=== PATIENT | male | born 1935 | race Caucasian/White ===

== ENCOUNTER → 2017-03-03 | Outpatient (CLI) | payer MEDICARE ==
[2015-07-09 11:24] VITALS: BP 162/77
[~2017-03-03] MED LIST: ACET325T9 PO; ALBU2.5V5 NEB; ALPR0.25 PO; ALPR0.254 PO; ASPI-482 PO; Albuterol Sulfate NEB; CLOP75TA PO; CLOP75TA57 PO; DILT240C2 PO; GUAI5LIQ PO; GUAI600T47 PO; LEVO750T31 PO; LISI40TA PO; NAPR500T3 PO; PRAV80TA2 PO; PRED-220 PO
--- NOTE | 2017-03-03 13:30 | RAD ---
Indication shortness of breath. PA and lateral views of the chest were obtained. Comparison is made to the most recent examination 07/19/2015. Chronic pleural-parenchymal changes are noted. The heart and pulmonary vessels are within normal limits. An acute parenchymal infiltrate is not seen. Significant pleural fluid is not present and there is no pneumothorax. IMPRESSION: Chronic changes. No acute finding is seen
== END | disposition home or self-care (01) ==
LOC: RAD 12:07
PROVIDERS: ATTEND Family Medicine
DX: R06.02 Shortness of breath (principal)
CPT/HCPCS: 71020

== ENCOUNTER → 2017-11-03 | Outpatient (CLI) | payer MEDICARE | END | disposition home or self-care (01) | LOC: RAD 08:15 | DX: M19.011 Primary osteoarthritis, right shoulder (principal); M19.012 Primary osteoarthritis, left shoulder; M11.012 Hydroxyapatite deposition disease, left shoulder; M11.011 Hydroxyapatite deposition disease, right shoulder; J84.10 Pulmonary fibrosis, unspecified | CPT/HCPCS: 73030 ==

== ENCOUNTER 2018-06-14 14:26 | Emergency (ER) | payer MEDICARE ==
[~2018-06-14] VITALS: Ht 170.2 cm; Wt 64.9 kg
[~2018-06-14 14:26] MED LIST changes: +LISI-130 PO; -LISI40TA PO; +NAPR-514 PO; -NAPR500T3 PO
--- NOTE | 2018-06-14 14:30 | PHYS DOC ---
Past Medical History Past Medical History: COPD, Hypertension Additional Past Medical Histor: emphysema, irregular heart beat Past Surgical History: Other Additional Past Surgical Histo: R groin stent placement, stents in heart, stents in legs bilaterally Alcohol Use: None Drug Use: None Adult General Chief Complaint Chief Complaint: SHORTNESS OF BREATH HPI HPI Patient is a 82 year old male with cc of cough shortness of breath generalized fatigue for the past two weeks. slowly worsening no chest pain no fever. he had flu shot a few days ago but he was feeling bad even before that. Review of Systems Review of Systems Constitutional: Eyes: Denies change in visual acuity, redness, or eye pain [] HENT: Denies nasal congestion or sore throat [] Respiratory: Cardiovascular: No additional information not addressed in HPI [] GI: constipation Musculoskeletal: D Integument: Denies rash or skin lesions [] Neurologic: Denies headache, focal weakness or sensory changes [] All other systems were reviewed and found to be within normal limits, except as documented in this note. Current Medications Current Medications Current Medications Medications (Trade) Dose Ordered Sig/Moraima Start Time Stop Time Status Last Admin Dose Admin Albuterol/ Ipratropium (Duoneb) 3 ml 1X ONCE 06/14/18 14:45 06/14/18 14:46 DC 06/14/18 14:49 3 ML Doxycycline Hyclate (Vibra-Tab) 100 mg 1X ONCE 06/14/18 16:00 06/14/18 16:01 DC Allergies Allergies Allergies Coded Allergies Type Severity Reaction Last Updated Verified No Known Drug Allergies 07/04/15 No Physical Exam Physical Exam Constitutional: Well developed, well nourished, no acute distress, non-toxic appearance. [] HENT: Normocephalic, atraumatic, bilateral external ears normal, oropharynx moist, no oral exudates, nose normal. [] Eyes: PERRLA, EOMI, conjunctiva normal, no discharge. [] Neck: Normal range of motion, no tenderness, supple, no stridor. [] Cardiovascular:Heart rate regular rhythm, no murmur [] Lungs & Thorax: prolonged expiratory phase and faint wheezing noted. Abdomen: Bowel sounds normal, soft, no tenderness, no masses, no pulsatile masses. [] Skin: Warm, dry, no erythema, no rash. [] Back: No tenderness, no CVA tenderness. [] Extremities: No tenderness, no cyanosis, no clubbing, ROM intact,trace edema. Neurologic: Alert and oriented X 3, normal motor function, normal sensory function, no focal deficits noted. [] Psychologic: Affect normal, judgement normal, mood normal. [] Current Patient Data Vital Signs Vital Signs Date Time Temp Pulse Resp B/P (MAP) Pulse Ox O2 Delivery O2 Flow Rate FiO2 06/14/18 14:51 96 06/14/18 14:32 98.5 77 26 169/74 (105) Nasal Cannula 98.5 Lab Values Laboratory Tests Test 06/14/18 14:36 06/14/18 15:10 White Blood Count 8.6 x10^3/uL (4.0-11.0) Red Blood Count 3.02 x10^6/uL (4.30-5.70) L Hemoglobin 9.9 g/dL (13.0-17.5) L Hematocrit 29.2 % (39.0-53.0) L Mean Corpuscular Volume 97 fL (79-100) Mean Corpuscular Hemoglobin 33 pg (25-35) Mean Corpuscular Hemoglobin Concent 34 g/dL (31-37) Red Cell Distribution Width 17.1 % (11.5-14.5) H Platelet Count 242 x10^3/uL (140-400) Neutrophils (%) (Auto) 72 % (31-73) Lymphocytes (%) (Auto) 14 % (24-48) L Monocytes (%) (Auto) 11 % (0-9) H Eosinophils (%) (Auto) 2 % (0-3) Basophils (%) (Auto) 1 % (0-3) Neutrophils # (Auto) 6.2 x10^3uL (1.8-7.7) Lymphocytes # (Auto) 1.2 x10^3/uL (1.0-4.8) Monocytes # (Auto) 1.0 x10^3/uL (0.0-1.1) Eosinophils # (Auto) 0.2 x10^3/uL (0.0-0.7) Basophils # (Auto) 0.1 x10^3/uL (0.0-0.2) Prothrombin Time 12.5 SEC (11.7-14.0) Prothrombin Time INR 1.0 (0.8-1.1) Sodium Level 140 mmol/L (136-145) Potassium Level 3.9 mmol/L (3.5-5.1) Chloride Level 100 mmol/L (98-107) Carbon Dioxide Level 34 mmol/L (21-32) H Anion Gap 6 (6-14) Blood Urea Nitrogen 18 mg/dL (8-26) Creatinine 1.1 mg/dL (0.7-1.3) Estimated GFR (Cockcroft-Gault) 64.1 BUN/Creatinine Ratio 16 (6-20) Glucose Level 125 mg/dL (70-99) H Calcium Level 9.1 mg/dL (8.5-10.1) Total Bilirubin 0.2 mg/dL (0.2-1.0) Aspartate Amino Transferase (AST) 19 U/L (15-37) Alanine Aminotransferase (ALT) 33 U/L (16-63) Alkaline Phosphatase 83 U/L (46-116) Troponin I Quantitative < 0.017 ng/mL (0.000-0.055) CD-Zjm-G-Type Natriuretic Peptide 556 pg/mL (0-449) H Total Protein 7.4 g/dL (6.4-8.2) Albumin 3.0 g/dL (3.4-5.0) L Albumin/Globulin Ratio 0.7 (1.0-1.7) L Influenza Type A Antigen Negative (NEGATIVE) Influenza Type B Antigen Negative (NEGATIVE) Laboratory Tests 06/14/18 14:36 Laboratory Tests 06/14/18 14:36 EKG EKG [] Interpretation Time: nsr rate 72 no ischemic changes no stemi normal intervals. Radiology/Procedures Radiology/Procedures [] Impressions: PRESSION: 1. Mild prominent appearing bilateral interstitial lung markings could be chronic interstitial changes or interstitial infiltrates. 2. 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 Electronically signed by: Jorge Cordero MD (06/14/2018 3:17 PM) [id number] DICTATED and SIGNED BY: JORGE CORDERO MD DATE: 06/14/18 1513 Course & Med Decision Making Course & Med Decision Making Pertinent Labs and Imaging studies reviewed. (See chart for details) [] hx of coronary artery disease with previous stent placement, hypertension, COPD, chronic respiratory failure. osteoarthritis, hyperlipidemia, and anemia. p/w generalized malaise,small incrsae in cough cxr suggestive of atypical pneumonia. pt saturating well at 95 on 4l (norammly on 6l at home) after walking back to room in er from bathroom. doxycycline rx lactulose for report of constiaption Dragon Disclaimer Dragon Disclaimer This electronic medical record was generated, in whole or in part, using a voice recognition dictation system. Departure Departure Impression: Primary Impression: Atypical pneumonia Disposition: HOME, SELF-CARE Condition: STABLE Referrals: ANKIT PARDO MD (PCP) Scripts Lactulose (LACTULOSE) 20 Gm/30 Ml Solution 20 GM PO BID PRN for CONSTIPATION, #1 MISC Prov: PHIL ESPINOZA MD 06/14/18 Doxycycline Hyclate (DOXYCYCLINE HYCLATE) 100 Mg Tablet 1 TAB PO BID, #20 TAB Prov: PHIL ESPINOZA MD 06/14/18 PHIL ESPINOZA MD Jun 14, 2018 14:30
[2018-06-14] MEDS ORDERED: IPRATRPIUM/ALBUTEROL 0.5/2.5MG 3 ML NEBU. NEB ONE (14:45)
[2018-06-14 14:59] LABS: BASO # 0.1 x10^3/uL (0.0-0.2); BASO % 1 % (0-3); EOS # 0.2 x10^3/uL (0.0-0.7); EOS % 2 % (0-3); HEMATOCRIT 29.2 % (39.0-53.0); HEMOGLOBIN 9.9 g/dL (13.0-17.5); LYMPH # 1.2 x10^3/uL (1.0-4.8); LYMPH % 14 % (24-48); MEAN CORPUSCULAR HEMOGLOBIN 33 pg (25-35); MEAN CORPUSCULAR HGB CONC 34 g/dL (31-37); MEAN CORPUSCULAR VOLUME 97 fL (79-100); MONO % 11 % (0-9); NEUT # 6.2 x10^3uL (1.8-7.7); NEUT % 72 % (31-73); PLATELET COUNT 242 x10^3/uL (140-400); PROTHROMBIN TIME PATIENT 12.5 SEC (11.7-14.0); RED BLOOD COUNT 3.02 x10^6/uL (4.30-5.70); RED CELL DISTRIBUTION WIDTH 17.1 % (11.5-14.5); WHITE BLOOD COUNT 8.6 x10^3/uL (4.0-11.0)
[2018-06-14 15:03] LABS: CALCIUM 9.1 mg/dL (8.5-10.1); CREATININE 1.1 mg/dL (0.7-1.3); GFR 64.1; POTASSIUM 3.9 mmol/L (3.5-5.1)
[2018-06-14 15:08] LABS: ALBUMIN/GLOBULIN RATIO 0.7 (1.0-1.7); TOTAL BILIRUBIN 0.2 mg/dL (0.2-1.0); TOTAL PROTEIN 7.4 g/dL (6.4-8.2)
--- NOTE | 2018-06-14 15:12 | EKG ---
[facility] [address] [place] [address] Test Date: 2018-06-14 Test Time: 14:52:05 Pat Name: CHELSIE PETTY Department: Room: Gender: M Seal Mixer: : 1935 Requested By: PHIL ESPINOZA Order Number: [id number] Reading MD: Wyatt Riley MD Measurements Intervals [place] Rate: 72 P: SD: QRS: 53 QRSD: 90 T: 65 QT: 384 QTc: 422 Interpretive Statements SINUS RHYTHM PAC Electronically Signed On 06-16-2018 9:51:53 CDT by Wyatt Riley MD
--- NOTE | 2018-06-14 15:20 | RAD ---
Examination: Single frontal view the chest HISTORY: History of shortness of breath COMPARISON: 03/03/2017. FINDINGS: The cardiomediastinal silhouette grossly appears unremarkable.Calcific densities identified in the bilateral hemithoraces likely calcified pleural plaques. There is mild prominent appearing bilateral interstitial lung markings could be chronic interstitial changes or interstitial infiltrates. IMPRESSION: 1. Mild prominent appearing bilateral interstitial lung markings could be chronic interstitial changes or interstitial infiltrates. 2. 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 Electronically signed by: Jorge Cordero MD (06/14/2018 3:17 PM) [id number]
[2018-06-14] MEDS ORDERED: DOXY100T PO (15:55)
[2018-06-14] MEDS ORDERED: LACT20SO PO (15:55)
[2018-06-14] MEDS ORDERED: DOXYCYCLINE HYCLATE 100 MG TABLET PO ONE (16:00)
[2018-06-14 16:05] LABS: INFLUENZA A PATIENT NEGATIVE (NEGATIVE); INFLUENZA B PATIENT NEGATIVE (NEGATIVE)
[2018-06-14 16:50] VITALS: BP 135/63
== END 2018-06-14 16:50 | disposition home or self-care (01) ==
LOC: ER 14:26
DX: J18.9 Pneumonia, unspecified organism (principal); J44.9 Chronic obstructive pulmonary disease, unspecified; I10 Essential (primary) hypertension
CPT/HCPCS: 36415; 71045; 80053; 83880; 84484; 85025; 85610; 87804; 93005; 94640; 99285; J7620

== ENCOUNTER 2018-08-12 12:25 | Emergency (ER) | payer MEDICARE ==
[~2018-08-12] VITALS: Ht 172.7 cm; Wt 67.1 kg
[~2018-08-12 12:25] MED LIST changes: +DOXY100T PO; +LACT20SO PO
[2018-08-12] MEDS ORDERED: IPRATRPIUM/ALBUTEROL 0.5/2.5MG 3 ML NEBU. NEB ONE (12:45)
[2018-08-12 12:56] LABS: BASO # 0.1 x10^3/uL (0.0-0.2); BASO % 1 % (0-3); EOS # 0.1 x10^3/uL (0.0-0.7); EOS % 1 % (0-3); HEMATOCRIT 29.5 % (39.0-53.0); HEMOGLOBIN 9.9 g/dL (13.0-17.5); LYMPH # 0.8 x10^3/uL (1.0-4.8); LYMPH % 9 % (24-48); MEAN CORPUSCULAR HEMOGLOBIN 33 pg (25-35); MEAN CORPUSCULAR HGB CONC 34 g/dL (31-37); MEAN CORPUSCULAR VOLUME 97 fL (79-100); MONO # 0.8 x10^3/uL (0.0-1.1); MONO % 9 % (0-9); NEUT # 7.2 x10^3uL (1.8-7.7); NEUT % 80 % (31-73); PLATELET COUNT 294 x10^3/uL (140-400); RED BLOOD COUNT 3.03 x10^6/uL (4.30-5.70); RED CELL DISTRIBUTION WIDTH 18.5 % (11.5-14.5)
--- NOTE | 2018-08-12 13:01 | EKG ---
[facility] [address] [place] [address] Test Date: 2018-08-12 Test Time: 12:33:33 Pat Name: CHELSIE PETTY Department: Room: Gender: M Brass Pickler: : 1935 Requested By: TITUS STROUD Order Number: [id number] Reading MD: Chilango Busby Measurements Intervals [place] Rate: 77 P: ID: QRS: 22 QRSD: 94 T: 64 QT: 376 QTc: 432 Interpretive Statements SINUS RHYTHM Electronically Signed On 08-16-2018 10:30:45 CELL RELINER by Chilango Busby
[2018-08-12 13:06] LABS: CALCIUM 8.8 mg/dL (8.5-10.1); CREATININE 1.1 mg/dL (0.7-1.3); GFR 64.1; POTASSIUM 3.9 mmol/L (3.5-5.1)
--- NOTE | 2018-08-12 13:08 | RAD ---
Chest radiograph 08/12/2018 12:33 PM INDICATION: Shortness of air COMPARISON: June 14, 2018 TECHNIQUE: Portable upright frontal view of the chest is provided. FINDINGS: The cardiomediastinal silhouette is within normal limits. There are no pleural effusions. There is no pulmonary vascular congestion. There is no pneumothorax. The lungs are clear. Stable calcified granuloma in the right upper lobe measuring 10 mm. Calcific pleural plaques are suspected. Mild chronic interstitial changes are noted. Left suprahilar atelectasis or scarring. There may be a left suprahilar nodular opacity measuring 17 mm. No significant osseous abnormality is identified. IMPRESSION: No acute cardiopulmonary process. Left suprahilar nodularity appears stable from prior examination. Chronic interstitial changes are present. Electronically signed by: Cyn Gibbs MD (08/12/2018 1:03 PM) [id number]
[2018-08-12 13:12] LABS: ALBUMIN 3.5 g/dL (3.4-5.0); DIRECT BILIRUBIN 0.1 mg/dL (0.0-0.2); TOTAL BILIRUBIN 0.2 mg/dL (0.2-1.0); TOTAL PROTEIN 7.4 g/dL (6.4-8.2)
[2018-08-12 15:11] LABS: FECAL OB PT NEGATIVE (NEG)
--- NOTE | 2018-08-12 15:12 | PHYS DOC ---
Past Medical History Past Medical History: A-Fib, Bronchitis, COPD, Hypertension, Other Additional Past Medical Histor: EMPHYSEMA,ASBESTOS OF LUNG, HOME O2 Past Surgical History: Other Additional Past Surgical Histo: R groin stent placement, stents in heart, stents in legs bilaterally Alcohol Use: None Drug Use: None Adult General Chief Complaint Chief Complaint: SHORTNESS OF BREATH HPI HPI 82-year-old male presenting the emergency department today with shortness of breath that is chronic. [facility] also [facility]. He has paperwork with him today. 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 He denies any changes in his shortness of breath. He denies chest pain abdominal pain nausea vomiting. He reports taking iron every day which makes his stools dark but denies any recent changes. He has a hx of a GI bleed. ROS neg for cp/n/v/f/c. All other review of systems is negative unless otherwise noted in history of present illness. ED course: 82-year-old male presenting to the emergency department for low hemoglobin with chronic shortness of breath. On arrival patient is afebrile with normal heart rate. Saturating well on his 6 L nasal cannula which she takes at home. Blood pressure is elevated. On exam his lungs are clear bilaterally. The remainder the exam is unremarkable. Workup breathing within normal limits. Patient's hemoglobin on August 05 is recorded to be at 10.1. The patient takes a baby aspirin without any anticoagulants. Rectal exam shows no blood in the stool. Fecal occult blood sent. This is negative. Plan is to discharge the patient to follow-up with in 1 to 2 days. The patient has been examined and was not found to have an emergency medical condition. The patient was then discharged home in stable condition to follow up with their primary care physician over the next 1-2 days. They were to return if their symptoms worsened or if they were concerned for any reason. They were also instructed to return to the emergency department if they were unable to get the recommended and appropriate follow-up. [id number] discharge instructions and return precautions were given. Patient's questions were answered to their satisfaction. Patient is comfortable with plan. Review of Systems Review of Systems SEE ABOVE. Current Medications Current Medications Current Medications Medications (Trade) Dose Ordered Sig/Moraima Start Time Stop Time Status Last Admin Dose Admin Albuterol/ Ipratropium (Duoneb) 3 ml 1X ONCE 08/12/18 12:45 08/12/18 12:52 DC 08/12/18 12:52 3 ML Allergies Allergies Allergies Coded Allergies Type Severity Reaction Last Updated Verified No Known Drug Allergies 07/04/15 No Physical Exam Physical Exam SEE ABOVE Constitutional: Well developed, well nourished, no acute distress, non-toxic appearance. HENT: Normocephalic, atraumatic, bilateral external ears normal, oropharynx moist, no oral exudates, nose normal. [] Eyes: PERRLA, EOMI, conjunctiva normal, no discharge. Neck: Normal range of motion, no tenderness, supple, no stridor. [] Cardiovascular:Heart rate regular rhythm, no murmur Lungs & Thorax: Bilateral breath sounds clear to auscultation Abdomen: Bowel sounds normal, soft, no tenderness, no masses, no pulsatile masses. [] Skin: Warm, dry, no erythema, no rash. Back: No tenderness, no CVA tenderness. [] Extremities: No tenderness, no cyanosis, no clubbing, ROM intact, no edema. Neurologic: Alert and oriented X 3, normal motor function, normal sensory function, no focal deficits noted. Psychologic: Affect normal, judgement normal, mood normal. Current Patient Data Vital Signs Vital Signs Date Time Temp Pulse Resp B/P (MAP) Pulse Ox O2 Delivery O2 Flow Rate FiO2 08/12/18 15:30 58 22 146/67 (93) 98 Nasal Cannula 6.0 08/12/18 12:27 98.6 98.6 Lab Values Laboratory Tests Test 08/12/18 12:33 08/12/18 12:40 08/12/18 14:34 08/12/18 14:37 Troponin I Quantitative < 0.017 ng/mL (0.000-0.055) White Blood Count 9.0 x10^3/uL (4.0-11.0) Red Blood Count 3.03 x10^6/uL (4.30-5.70) L Hemoglobin 9.9 g/dL (13.0-17.5) L Hematocrit 29.5 % (39.0-53.0) L Mean Corpuscular Volume 97 fL (79-100) Mean Corpuscular Hemoglobin 33 pg (25-35) Mean Corpuscular Hemoglobin Concent 34 g/dL (31-37) Red Cell Distribution Width 18.5 % (11.5-14.5) H Platelet Count 294 x10^3/uL (140-400) Neutrophils (%) (Auto) 80 % (31-73) H Lymphocytes (%) (Auto) 9 % (24-48) L Monocytes (%) (Auto) 9 % (0-9) Eosinophils (%) (Auto) 1 % (0-3) Basophils (%) (Auto) 1 % (0-3) Neutrophils # (Auto) 7.2 x10^3uL (1.8-7.7) Lymphocytes # (Auto) 0.8 x10^3/uL (1.0-4.8) L Monocytes # (Auto) 0.8 x10^3/uL (0.0-1.1) Eosinophils # (Auto) 0.1 x10^3/uL (0.0-0.7) Basophils # (Auto) 0.1 x10^3/uL (0.0-0.2) Sodium Level 144 mmol/L (136-145) Potassium Level 3.9 mmol/L (3.5-5.1) Chloride Level 104 mmol/L (98-107) Carbon Dioxide Level 32 mmol/L (21-32) Anion Gap 8 (6-14) Blood Urea Nitrogen 18 mg/dL (8-26) Creatinine 1.1 mg/dL (0.7-1.3) Estimated GFR (Cockcroft-Gault) 64.1 Glucose Level 116 mg/dL (70-99) H Calcium Level 8.8 mg/dL (8.5-10.1) Total Bilirubin 0.2 mg/dL (0.2-1.0) Direct Bilirubin 0.1 mg/dL (0.0-0.2) Aspartate Amino Transferase (AST) 21 U/L (15-37) Alanine Aminotransferase (ALT) 34 U/L (16-63) Alkaline Phosphatase 84 U/L (46-116) FW-Ecm-Z-Type Natriuretic Peptide 717 pg/mL (0-449) H Total Protein 7.4 g/dL (6.4-8.2) Albumin 3.5 g/dL (3.4-5.0) Lipase 97 U/L (73-393) Stool Occult Blood Negative (NEG) Urine Collection Type Unknown Urine Color Yellow Urine Clarity Clear Urine pH 6.0 Urine Specific [place] 1.025 Urine Protein Negative mg/dL (NEG-TRACE) Urine Glucose (UA) Negative mg/dL (NEG) Urine Ketones (Stick) Negative mg/dL (NEG) Urine Blood Negative (NEG) Urine Nitrite Negative (NEG) Urine Bilirubin Small (NEG) Urine Urobilinogen Dipstick 1.0 mg/dL (0.2 mg/dL) Urine Leukocyte Esterase Small (NEG) Urine RBC 1-2 /HPF (0-2) Urine WBC >40 /HPF (0-4) Urine Squamous Epithelial Cells Few /LPF Urine Bacteria 0 /HPF (0-FEW) Urine Hyaline Casts Moderate /HPF Urine Mucus Marked /LPF Laboratory Tests 08/12/18 12:40 Laboratory Tests 08/12/18 12:40 EKG EKG [] Radiology/Procedures Radiology/Procedures [] Course & Med Decision Making Course & Med Decision Making Pertinent Labs and Imaging studies reviewed. (See chart for details) [] Dragon Disclaimer Dragon Disclaimer This electronic medical record was generated, in whole or in part, using a voice recognition dictation system. Departure Departure Impression: Primary Impression: Anemia Disposition: 01 HOME, SELF-CARE Condition: STABLE Referrals: ANKIT PARDO MD (PCP) Patient Instructions: Anemia, FAQs TITUS STROUD MD Aug 12, 2018 15:12
[2018-08-12 15:15] LABS: BILIRUBIN,URINE SMALL (NEG); CLARITY,URINE CLEAR; COLOR,URINE YELLOW; NITRITE,URINE NEGATIVE (NEG); PROTEIN,URINE NEGATIVE (NEG-TRACE)
[2018-08-12 15:26] LABS: BACTERIA,URINE 0 /HPF (0-FEW); HYALINE CASTS, URINE MODERATE /HPF; SQUAMOUS EPITHELIAL CELL,UR FEW /LPF; WBC,URINE >40 /HPF (0-4)
[2018-08-12 15:30] VITALS: BP 146/67
== END 2018-08-12 16:15 | disposition home or self-care (01) ==
LOC: ER 12:25
DX: D64.9 Anemia, unspecified (principal); J43.9 Emphysema, unspecified; I48.91 Unspecified atrial fibrillation; I10 Essential (primary) hypertension; Z95.5 Presence of coronary angioplasty implant and graft
CPT/HCPCS: 36415; 71045; 80048; 80076; 81001; 82274; 83690; 83880; 84484; 85025; 87086; 93005; 94640; 99284; J7620

== ENCOUNTER 2019-07-04 16:10 | Inpatient (IN) | payer MEDICARE ==
[2019-07-04] VITALS (9 sets, daily range): BP systolic 108–139; BP diastolic 52–64
[~2019-07-04] VITALS: Ht 170.2 cm; Wt 65.8 kg
[2019-07-04] MEDS ORDERED: IV NORMAL SALINE 1000ML BAG 1,000 ML IV ONE (16:30)
[2019-07-04] MEDS ORDERED: ACETAMINOPHEN 500 MG TABLET PO ONE (16:30)
[2019-07-04] MEDS ORDERED: IPRATRPIUM/ALBUTEROL 0.5/2.5MG 3 ML NEBU. NEB ONE (16:30)
[2019-07-04] MEDS ORDERED: AZITHRMYCN 500MG IVPB FOR OMNI 250 ML IV ONE (16:30)
[2019-07-04] MEDS ORDERED: methylPREDNISolone SOD SUCC PF 125 MG/2 ML VIAL. IV ONE (16:30)
--- NOTE | 2019-07-04 16:36 | PHYS DOC ---
Past Medical History Past Medical History: A-Fib, Bronchitis, COPD, Hypertension, Other Additional Past Medical Histor: EMPHYSEMA,ASBESTOS OF LUNG, HOME O2 Past Surgical History: Other Additional Past Surgical Histo: R groin stent placement, stents in heart, stents in legs bilaterally Alcohol Use: None Drug Use: None Adult General Chief Complaint Chief Complaint: SHORTNESS OF BREATH [facility] HPI Patient is an 83-year-old male who presents to the emergency department for evaluation, from his PCPs office. The patient states that he has a history of COPD, and is currently on 6 L of oxygen chronically at home. He states he has been having increasing shortness of breath over the past few weeks, along with cough productive of grayish sputum. He denies any pain, nausea, or vomiting. He went to his PCPs office today and was found to have maximal oxygen saturation in the 80s so was sent to the emergency department for further evaluation and treatment. He denies any orthopnea, pleuritic pain, dizziness or lightheadedness. He is noted to be febrile upon arrival to the emergency department. There are no alleviating or exacerbating factors to his symptoms otherwise. Review of Systems Review of Systems Constitutional: Denies fever or chills [] Eyes: Denies change in visual acuity, redness, or eye pain [] HENT: Denies nasal congestion or sore throat [] Respiratory: No additional information not addressed in HPI [] Cardiovascular:The patient denies any chest pain, palpitations, or orthopnea[] GI: Denies abdominal pain, nausea, vomiting, bloody stools or diarrhea [] : Denies dysuria or hematuria [] Musculoskeletal: Denies back pain or joint pain [] Integument: Denies rash or skin lesions [] Neurologic: Denies headache, focal weakness or sensory changes [] Endocrine: Denies polyuria or polydipsia [] All other systems were reviewed and found to be within normal limits, except as documented in this note. Current Medications Current Medications Current Medications Medications (Trade) Dose Ordered Sig/Moraima Start Time Stop Time Status Last Admin Dose Admin Acetaminophen (Tylenol) 1,000 mg 1X ONCE 07/04/19 16:30 07/04/19 16:33 DC 07/04/19 17:05 1,000 MG Albuterol/ Ipratropium (Duoneb) 3 ml 1X ONCE 07/04/19 16:30 07/04/19 16:31 DC 07/04/19 17:04 3 ML Azithromycin 250 ml @ 250 mls/hr 1X ONCE 07/04/19 16:30 07/04/19 17:29 DC 07/04/19 17:05 250 MLS/HR Methylprednisolone Sodium Succinate (SOLU-Medrol 125MG VIAL) 125 mg 1X ONCE 07/04/19 16:30 07/04/19 16:31 DC 07/04/19 17:05 125 MG Sodium Chloride 1,000 ml @ 1,000 mls/hr 1X ONCE 07/04/19 16:30 07/04/19 17:29 DC 07/04/19 17:06 1,000 MLS/HR Allergies Allergies Allergies Coded Allergies Type Severity Reaction Last Updated Verified No Known Drug Allergies 07/04/15 No Physical Exam Physical Exam PHYSICAL EXAM: CONSTITUTIONAL: Well developed, well nourished HEAD: normocephalic, atraumatic EENT: PERRL, EOMI. Conjunctivae normal color, sclerae non-icteric; moist mucous membranes. NECK: Supple, non-tender; no meningismus. LUNGS: There are diminished breath sounds globally, with some faint scattered expiratory wheezes diffusely. There are more focal rhonchi in the left mid and lower lung yu, breathing is unlabored . HEART: Regular rate and rhythm, no murmur CHEST: No deformity; non-tender ABDOMEN: The abdomen is soft, and non-tender, no masses or bruits. EXTREM: Normal ROM; no deformity, no calf tenderness. Normal pulses palpable in all extremities. There is no pedal edema. SKIN: No rash; no diaphoresis NEURO: Alert; normal speech and cognition; CN's grossly intact; strength grossly intact without focal deficit. BACK: No CVA TTP. Current Patient Data Vital Signs Vital Signs Date Time Temp Pulse Resp B/P (MAP) Pulse Ox O2 Delivery O2 Flow Rate FiO2 07/04/19 17:06 96 Nasal Cannula 4.0 07/04/19 16:13 101.3 89 22 155/69 (97) 101.3 Lab Values Laboratory Tests Test 07/04/19 16:45 White Blood Count 20.2 x10^3/uL (4.0-11.0) H Red Blood Count 2.82 x10^6/uL (4.30-5.70) L Hemoglobin 8.9 g/dL (13.0-17.5) L Hematocrit 27.0 % (39.0-53.0) L Mean Corpuscular Volume 96 fL (79-100) Mean Corpuscular Hemoglobin 32 pg (25-35) Mean Corpuscular Hemoglobin Concent 33 g/dL (31-37) Red Cell Distribution Width 20.6 % (11.5-14.5) H Platelet Count 210 x10^3/uL (140-400) Neutrophils (%) (Auto) 87 % (31-73) H Lymphocytes (%) (Auto) 4 % (24-48) L Monocytes (%) (Auto) 8 % (0-9) Eosinophils (%) (Auto) 0 % (0-3) Basophils (%) (Auto) 1 % (0-3) Neutrophils # (Auto) 17.6 x10^3/uL (1.8-7.7) H Lymphocytes # (Auto) 0.9 x10^3/uL (1.0-4.8) L Monocytes # (Auto) 1.6 x10^3/uL (0.0-1.1) H Eosinophils # (Auto) 0.0 x10^3/uL (0.0-0.7) Basophils # (Auto) 0.2 x10^3/uL (0.0-0.2) Segmented Neutrophils % 69 % (35-66) H Band Neutrophils % 20 % (0-9) H Lymphocytes % 5 % (24-48) L Monocytes % 6 % (0-10) Toxic Granulation Slight Dohle Bodies Present Platelet Estimate Adequate (ADEQUATE) Poikilocytosis Slight Anisocytosis Mod Ovalocytes Occ Stomatocytes Schistocytes Occ Sodium Level 139 mmol/L (136-145) Potassium Level 3.7 mmol/L (3.5-5.1) Chloride Level 101 mmol/L (98-107) Carbon Dioxide Level 29 mmol/L (21-32) Anion Gap 9 (6-14) Blood Urea Nitrogen 25 mg/dL (8-26) Creatinine 1.3 mg/dL (0.7-1.3) Estimated GFR (Cockcroft-Gault) 52.7 BUN/Creatinine Ratio 19 (6-20) Glucose Level 123 mg/dL (70-99) H Lactic Acid Level 1.4 mmol/L (0.4-2.0) Calcium Level 8.3 mg/dL (8.5-10.1) L Total Bilirubin 1.0 mg/dL (0.2-1.0) Aspartate Amino Transferase (AST) 14 U/L (15-37) L Alanine Aminotransferase (ALT) 12 U/L (16-63) L Alkaline Phosphatase 78 U/L (46-116) Troponin I Quantitative < 0.017 ng/mL (0.000-0.055) ZR-Czp-J-Type Natriuretic Peptide 746 pg/mL (0-449) H Total Protein 7.3 g/dL (6.4-8.2) Albumin 3.1 g/dL (3.4-5.0) L Albumin/Globulin Ratio 0.7 (1.0-1.7) L Influenza Type A Antigen Negative (NEGATIVE) Influenza Type B Antigen Negative (NEGATIVE) Laboratory Tests 07/04/19 16:45 Laboratory Tests 07/04/19 16:45 EKG EKG [] Normal sinus rhythm at a rate of 88 bpm with occasional APCs, normal axis, normal intervals, nonspecific ST/T changes inferiorly/laterally, unchanged compared to patient's EKG from 07/2018. Radiology/Procedures Radiology/Procedures PROCEDURE: CHEST PA & LATERAL Two-view chest dated 07/04/2019. Comparison made to 08/12/2018. Clinical data indication: Shortness of breath. FINDINGS: PA and lateral views obtained. Heart and mediastinal contours are stable. There is a rounded consolidation in the right lower lobe, new from prior study. There are also some patchy and linear opacities at the perihilar regions, similar slightly increased. No pleural effusion or pneumothorax. IMPRESSION: Increasing bilateral airspace disease, atelectasis or pneumonia. Underlying mass cannot be excluded. Recommend follow-up imaging after treatment to ensure resolution. Course & Med Decision Making Course & Med Decision Making Pertinent Labs and Imaging studies reviewed. (See chart for details) [] 5:05 PM:The patient's condition remains stable. I spoke with the hospitalist, who accepted the patient to the hospital for further evaluation and treatment. 5:55 PM: The patient developed rapid atrial fibrillation with a heart rate in the 130s. Blood pressure remained stable. Cardizem will be started. Hospitalist will be updated. CRITICAL CARE TIME: 45 Minutes, excluding any procedures and care of other patients. Dragon Disclaimer Dragon Disclaimer This electronic medical record was generated, in whole or in part, using a voice recognition dictation system. Departure Departure Impression: Primary Impression: Pneumonia Additional Impressions: COPD with acute exacerbation Rapid atrial fibrillation Disposition: 09 ADMITTED INPATIENT Admitting Physician: DIANE Condition: STABLE Referrals: ANKIT PARDO MD (PCP) Problem Qualifiers NEMO DOWNING MD Jul 04, 2019 16:36
--- NOTE | 2019-07-04 16:51 | EKG ---
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
[2019-07-04 16:53] LABS: BASO # 0.2 x10^3/uL (0.0-0.2); BASO % 1 % (0-3); EOS % 0 % (0-3); HEMOGLOBIN 8.9 g/dL (13.0-17.5); LYMPH # 0.9 x10^3/uL (1.0-4.8); LYMPH % 4 % (24-48); MEAN CORPUSCULAR HEMOGLOBIN 32 pg (25-35); MEAN CORPUSCULAR HGB CONC 33 g/dL (31-37); MEAN CORPUSCULAR VOLUME 96 fL (79-100); MONO # 1.6 x10^3/uL (0.0-1.1); MONO % 8 % (0-9); NEUT # 17.6 x10^3/uL (1.8-7.7); NEUT % 87 % (31-73); PLATELET COUNT 210 x10^3/uL (140-400); RED BLOOD COUNT 2.82 x10^6/uL (4.30-5.70); RED CELL DISTRIBUTION WIDTH 20.6 % (11.5-14.5); WHITE BLOOD COUNT 20.2 x10^3/uL (4.0-11.0)
[2019-07-04 17:02] LABS: CALCIUM 8.3 mg/dL (8.5-10.1); CREATININE 1.3 mg/dL (0.7-1.3); GFR 52.7; POTASSIUM 3.7 mmol/L (3.5-5.1)
[2019-07-04 17:08] LABS: ALBUMIN 3.1 g/dL (3.4-5.0); ALBUMIN/GLOBULIN RATIO 0.7 (1.0-1.7); TOTAL PROTEIN 7.3 g/dL (6.4-8.2)
[2019-07-04 17:11] LABS: INFLUENZA A PATIENT NEGATIVE (NEGATIVE); INFLUENZA B PATIENT NEGATIVE (NEGATIVE)
--- NOTE | 2019-07-04 17:13 | RAD ---
Two-view chest dated 07/04/2019. Comparison made to 08/12/2018. Clinical data indication: Shortness of breath. FINDINGS: PA and lateral views obtained. Heart and mediastinal contours are stable. There is a rounded consolidation in the right lower lobe, new from prior study. There are also some patchy and linear opacities at the perihilar regions, similar slightly increased. No pleural effusion or pneumothorax. IMPRESSION: Increasing bilateral airspace disease, atelectasis or pneumonia. Underlying mass cannot be excluded. Recommend follow-up imaging after treatment to ensure resolution. Electronically signed by: Wang Douglas MD (07/04/2019 5:10 PM) [facility]
[2019-07-04] MEDS ORDERED: HYDROcodone/APAP 5/325MG 1 TAB TABLET PO PRN (17:15)
[2019-07-04] MEDS ORDERED: TEMAZEPAM 7.5 MG CAPSULE PO PRN (17:15)
[2019-07-04] MEDS ORDERED: LACTULOSE 20 GM/30 ML SOLUTION. PO PRN (17:15)
[2019-07-04] MEDS ORDERED: ALBUTEROL SULFATE 2.5 MG/3 ML NEBU. NEB PRN (17:15)
[2019-07-04] MEDS ORDERED: MORPHINE SULFATE 2 MG/ML VIAL. IV PRN (17:15)
[2019-07-04] MEDS ORDERED: CALCIUM CARBONATE 500 MG TAB.CHEW PO PRN (17:15)
[2019-07-04] MEDS ORDERED: ONDANSETRON PF 4 MG/2 ML VIAL. IVP PRN (17:15)
[2019-07-04] MEDS ORDERED: levOFLOXacin PER PHARMACY. MC PRN (17:30)
--- NOTE | 2019-07-04 17:30 | PDOC1 ---
History and Physical Date of Admission Date of Admission DATE: 07/04/19 TIME: 17:23 Identification/Chief Complaint Chief Complaint sent from DR Christine office for concerns of "PNA" Source Source: Caregiver, Chart review, Patient History of Present Illness History of Present Illness 83 white male, PCP Dr Mohini Encarnacion, sent in today from DR Christine office for concerns of "PNA." Low sats in office, low sats on arrival at ER too as low as 82% but was speaking in full sentences, hx COPD on inhalers, ex smoker, quit very distant past. Febrile here, 101.3 WBC 20, very decreased BS on auscultation, no wheezing no crackles but impressive patchy infiltrates on CXR, Got CAP coverage from ER, Not in distress, no productive phlegm, at bedside, Came from home, FULL CODE Past Medical History Cardiovascular: CAD, HTN, Hyperlipidemia, Other Pulmonary: Bronchitis, COPD, Other GI: Diverticulosis, Other Heme/Onc: Anemia NOS Musculoskeletal: Osteoarthritis Past Surgical History Past Surgical History: Other Family History Family History: Diabetes, Hypertension Social History Smoke: Quit ALCOHOL: occassional Drugs: None Current Problem List Problem List Problems Medical Problems: (1) COPD with acute exacerbation Status: Acute (2) Pneumonia Status: Acute Current Medications Current Medications Current Medications Azithromycin 250 ml @ 250 mls/hr 1X ONCE IV Last administered on 07/04/19at 17:05; Start 07/04/19 at 16:30; Stop 07/04/19 at 17:29 Methylprednisolone Sodium Succinate (SOLU-Medrol 125MG VIAL) 125 mg 1X ONCE IV Last administered on 07/04/19at 17:05; Start 07/04/19 at 16:30; Stop 07/04/19 at 16:31; Status DC Albuterol/ Ipratropium (Duoneb) 3 ml 1X ONCE NEB Last administered on 07/04at 17:04; Start 07/04/19 at 16:30; Stop 07/04/19 at 16:31; Status DC Sodium Chloride 1,000 ml @ 1,000 mls/hr 1X ONCE IV Last administered on 07/04/19at 17:06; Start 07/04/19 at 16:30; Stop 07/04/19 at 17:29 Acetaminophen (Tylenol) 1,000 mg 1X ONCE PO Last administered on 07/04/19at 17:05; Start 07/04/19 at 16:30; Stop 07/04/19 at 16:33; Status DC Acetaminophen (Tylenol) 650 mg PRN Q6HRS PRN PO MILD PAIN / TEMP; Start 07/04/19 at 17:15 Albuterol Sulfate (Ventolin Neb Soln) 2.5 mg PRN Q4HRS PRN NEB SHORTNESS OF BREATH; Start 07/04/19 at 17:15 Alprazolam (Xanax) 0.25 mg TID PRN PRN PO ANXIETY / AGITATION; Start 07/04/19 at 17:15 Diltiazem HCl (Cardizem 24hr Cd) 240 mg DAILY PO ; Start 07/05/19 at 09:00; Status UNV Guaifenesin/ Codeine Phosphate (Robitussin Ac) 10 ml QID PO ; Start 07/04/19 at 21:00; Status UNV Lactulose (Lactulose) 20 gm BID PRN PO CONSTIPATION; Start 07/04/19 at 17:15; Status UNV Lisinopril (Prinivil) 40 mg DAILY PO ; Start 07/05/19 at 09:00; Status UNV Benzonatate (Tessalon Perle) 100 mg [id number] PO ; Start 07/04/19 at 21:00 Temazepam (Restoril) 7.5 mg PRN QHS PRN PO INSOMNIA; Start 07/04/19 at 17:15 Ondansetron HCl (Zofran) 4 mg PRN Q6HRS PRN IVP NAUSEA/VOMITING; Start 07/04/19 at 17:15 Acetaminophen/ Hydrocodone Bitart (Lortab 5/325) 1 tab PRN Q4HRS PRN PO PAIN; Start 07/04/19 at 17:15 Calcium Carbonate/ Glycine (Tums) 500 mg PRN AFTMEALHC PRN PO INDIGESTION; Start 07/04/19 at 17:15 Morphine Sulfate (Morphine Sulfate) 2 mg PRN Q2HR PRN IV PAIN; Start 07/04/19 at 17:15 Active Scripts Active Lactulose 20 Gm/30 Ml Solution 20 Gm PO BID PRN Doxycycline Hyclate 100 Mg Tablet 1 Tab PO BID Guaifenesin-Codeine Syrup (Guaifenesin/Codeine Phosphate) 5 Ml Liquid 5-10 Ml PO PRN Q4HRS PRN Tylenol (Acetaminophen) 325 Mg Tablet 650 Mg PO PRN Q6HRS PRN Reported Albuterol Sulfate Neb Soln (Albuterol Sulfate) 2.5 Mg/3 Ml Vial.neb 1 Vial NEB PRN Q4HRS PRN Cardizem Cd (Diltiazem Hcl) 240 Mg Cap.er.24h 240 Mg PO DAILY Xanax (Alprazolam) 0.25 Mg Tablet 0.25 Mg PO TID PRN PRN Lisinopril 40 Mg Tablet 40 Mg PO DAILY Allergies Allergies: Coded Allergies: No Known Drug Allergies (Unverified , 07/04/15) ROS Review of System as per HPI, all else 14 pt neg Physical Exam General: Alert, Oriented X3, Cooperative, No acute distress HEENT: Atraumatic Lungs: Normal air movement, Other (SCE, VERY diminsihed bilateral, posterior auiscultation,. no wheezing no crackles) Heart: S1S2, RRR, no thrills, no rubs, no gallops, no murmurs Cardiovascular: S1, S2 Abdomen: Normal bowel sounds, Soft, No tenderness, No hepatosplenomegaly, No masses Male Genitals Exam: normal genitalia, normal prostate Extremities: No clubbing, No cyanosis, No edema, Normal pulses, No tenderness/swelling Skin: No rashes, No breakdown, No significant lesion Neuro: Normal gait, Normal speech, Strength at 5/5 X4 ext, Normal tone, S ensation intact, Cranial nerves 3-12 NL, Reflexes 2+ Psych/Mental Status: Mental status NL, Mood NL Vitals Vitals Vital Signs Date Time Temp Pulse Resp B/P (MAP) Pulse Ox O2 Delivery O2 Flow Rate FiO2 07/04/19 17:06 96 Nasal Cannula 4.0 07/04/19 16:13 101.3 89 22 155/69 (97) 101.3 Labs Labs Laboratory Tests Test 07/04/19 16:45 White Blood Count 20.2 x10^3/uL (4.0-11.0) Red Blood Count 2.82 x10^6/uL (4.30-5.70) Hemoglobin 8.9 g/dL (13.0-17.5) Hematocrit 27.0 % (39.0-53.0) Mean Corpuscular Volume 96 fL (79-100) Mean Corpuscular Hemoglobin 32 pg (25-35) Mean Corpuscular Hemoglobin Concent 33 g/dL (31-37) Red Cell Distribution Width 20.6 % (11.5-14.5) Platelet Count 210 x10^3/uL (140-400) Neutrophils (%) (Auto) 87 % (31-73) Lymphocytes (%) (Auto) 4 % (24-48) Monocytes (%) (Auto) 8 % (0-9) Eosinophils (%) (Auto) 0 % (0-3) Basophils (%) (Auto) 1 % (0-3) Neutrophils # (Auto) 17.6 x10^3/uL (1.8-7.7) Lymphocytes # (Auto) 0.9 x10^3/uL (1.0-4.8) Monocytes # (Auto) 1.6 x10^3/uL (0.0-1.1) Eosinophils # (Auto) 0.0 x10^3/uL (0.0-0.7) Basophils # (Auto) 0.2 x10^3/uL (0.0-0.2) Sodium Level 139 mmol/L (136-145) Potassium Level 3.7 mmol/L (3.5-5.1) Chloride Level 101 mmol/L (98-107) Carbon Dioxide Level 29 mmol/L (21-32) Anion Gap 9 (6-14) Blood Urea Nitrogen 25 mg/dL (8-26) Creatinine 1.3 mg/dL (0.7-1.3) Estimated GFR (Cockcroft-Gault) 52.7 BUN/Creatinine Ratio 19 (6-20) Glucose Level 123 mg/dL (70-99) Lactic Acid Level 1.4 mmol/L (0.4-2.0) Calcium Level 8.3 mg/dL (8.5-10.1) Total Bilirubin 1.0 mg/dL (0.2-1.0) Aspartate Amino Transf (AST/SGOT) 14 U/L (15-37) Alanine Aminotransferase (ALT/SGPT) 12 U/L (16-63) Alkaline Phosphatase 78 U/L (46-116) Troponin I Quantitative < 0.017 ng/mL (0.000-0.055) DV-Vjv-L-Type Natriuretic Peptide 746 pg/mL (0-449) Total Protein 7.3 g/dL (6.4-8.2) Albumin 3.1 g/dL (3.4-5.0) Albumin/Globulin Ratio 0.7 (1.0-1.7) Influenza Type A Antigen Negative (NEGATIVE) Influenza Type B Antigen Negative (NEGATIVE) Laboratory Tests Test 07/04/19 16:45 White Blood Count 20.2 x10^3/uL (4.0-11.0) Red Blood Count 2.82 x10^6/uL (4.30-5.70) Hemoglobin 8.9 g/dL (13.0-17.5) Hematocrit 27.0 % (39.0-53.0) Mean Corpuscular Volume 96 fL (79-100) Mean Corpuscular Hemoglobin 32 pg (25-35) Mean Corpuscular Hemoglobin Concent 33 g/dL (31-37) Red Cell Distribution Width 20.6 % (11.5-14.5) Platelet Count 210 x10^3/uL (140-400) Neutrophils (%) (Auto) 87 % (31-73) Lymphocytes (%) (Auto) 4 % (24-48) Monocytes (%) (Auto) 8 % (0-9) Eosinophils (%) (Auto) 0 % (0-3) Basophils (%) (Auto) 1 % (0-3) Neutrophils # (Auto) 17.6 x10^3/uL (1.8-7.7) Lymphocytes # (Auto) 0.9 x10^3/uL (1.0-4.8) Monocytes # (Auto) 1.6 x10^3/uL (0.0-1.1) Eosinophils # (Auto) 0.0 x10^3/uL (0.0-0.7) Basophils # (Auto) 0.2 x10^3/uL (0.0-0.2) Sodium Level 139 mmol/L (136-145) Potassium Level 3.7 mmol/L (3.5-5.1) Chloride Level 101 mmol/L (98-107) Carbon Dioxide Level 29 mmol/L (21-32) Anion Gap 9 (6-14) Blood Urea Nitrogen 25 mg/dL (8-26) Creatinine 1.3 mg/dL (0.7-1.3) Estimated GFR (Cockcroft-Gault) 52.7 BUN/Creatinine Ratio 19 (6-20) Glucose Level 123 mg/dL (70-99) Lactic Acid Level 1.4 mmol/L (0.4-2.0) Calcium Level 8.3 mg/dL (8.5-10.1) Total Bilirubin 1.0 mg/dL (0.2-1.0) Aspartate Amino Transf (AST/SGOT) 14 U/L (15-37) Alanine Aminotransferase (ALT/SGPT) 12 U/L (16-63) Alkaline Phosphatase 78 U/L (46-116) Troponin I Quantitative < 0.017 ng/mL (0.000-0.055) BW-Keg-H-Type Natriuretic Peptide 746 pg/mL (0-449) Total Protein 7.3 g/dL (6.4-8.2) Albumin 3.1 g/dL (3.4-5.0) Albumin/Globulin Ratio 0.7 (1.0-1.7) Influenza Type A Antigen Negative (NEGATIVE) Influenza Type B Antigen Negative (NEGATIVE) VTE Prophylaxis Ordered VTE Prophylaxis Devices: Yes VTE Pharmacological Prophylaxi: Yes Assessment/Plan Assessment/Plan CAP with sepsis but no organ dysfcn - was not initiated yet on CAP abx as OP, was sent directly to ER from PCP nelida coburn satanu and impressive PE plus story which was a good call Hypoxic respi failure - add pulmo consult on top of levaquin per pharmacy, nebs and cough med; he was quite particular about getting his nebs COPD exacerbation Ex smoker HTN, CAD/CHF, OA, - chronic stable - ok to resume all home meds PLAN: MEd tele, 2 MN IN pt stay CAP coverage, nebs, cough med LESLIE PUlmo consult PT OT Ok to eat full code Seen at ER dw too GEORGI DELGADO MD Jul 04, 2019 17:30
[2019-07-04 17:31] LABS: % BANDS 20 % (0-9); % LYMPHS 5 % (24-48); % MONOS 6 % (0-10); % SEGS 69 % (35-66); PLT ESTIMATE ADEQUATE (ADEQUATE)
[2019-07-04 17:32] LABS: ANISOCYTOSIS MOD; OVALOCYTES OCC; POIKILOCYTOSIS SLIGHT; SCHISTOCYTES OCC
[2019-07-04 17:33] LABS: TOXIC GRANULATION SLIGHT
[2019-07-04] MEDS ORDERED: dilTIAZem IV PUSH 25 MG/5 ML VIAL IVP ONE (18:00)
[2019-07-04] MEDS ORDERED: dilTIAZem INJ 125 MG in IV DEXTROSE 5% 100ML 100 ML IV PRN (18:00)
[2019-07-04] MEDS ORDERED: IPRATRPIUM/ALBUTEROL 0.5/2.5MG 3 ML NEBU. NEB SCH (20:00)
--- NOTE | 2019-07-04 20:10 | NUR ---
PT ADMITTED TO 206 FROM ER ADMISSION PACKET GIVEN, ADMISSION ASSESSMENT COMPLETE, ORIENTED TO UNIT AND POC. CALL LIGHT IN PLACE WILL CONT TO MONITOR PT STATUS AND SAFETY. PMRN
[2019-07-04] MEDS ORDERED: ALBUTEROL INH PRN (20:45)
[2019-07-04] MEDS: guaiFENesin/CODEINE 100mg/10mg 5 ML LIQUID PO SCH (21:09)
[2019-07-04] MEDS: BENZONATATE 100 MG CAPSULE. PO SCH (21:09)
[2019-07-04] MEDS: IV NORMAL SALINE 1000ML BAG 1,000 ML IV SCH (21:10)
[2019-07-05] VITALS (9 sets, daily range): BP systolic 113–184; BP diastolic 55–73
[2019-07-05] MEDS: IV NORMAL SALINE 1000ML BAG 1,000 ML IV SCH (06:15)
[2019-07-05] MEDS: guaiFENesin/CODEINE 100mg/10mg 5 ML LIQUID PO SCH ×4 (08:55→21:28)
[2019-07-05] MEDS: LISINOPRIL 20 MG TABLET PO SCH (08:55)
[2019-07-05] MEDS: BENZONATATE 100 MG CAPSULE. PO SCH ×3 (08:56→21:28)
[2019-07-05] MEDS ORDERED: IPRATRPIUM/ALBUTEROL 0.5/2.5MG 3 ML NEBU. ONE (10:19)
[2019-07-05] MEDS: LACTOBACILLUS RHAMNOSUS GG 1 CAPSULE. PO SCH ×2 (11:22→21:28)
[2019-07-05] MEDS: IPRATRPIUM/ALBUTEROL 0.5/2.5MG 3 ML NEBU. NEB SCH ×3 (11:46→20:11)
--- NOTE | 2019-07-05 13:02 | NUR ---
SS following for discharge planning. SS reviewed pt chart. Pt is from home with spouse and is currently requiring oxygen. PT/OT evaluated pt and recommended home independent. SS will continue to follow for discharge planning.
--- NOTE | 2019-07-05 14:06 | PDOC ---
PULMONARY PROGRESS NOTES Vitals Vital Signs Date Time Temp Pulse Resp B/P (MAP) Pulse Ox O2 Delivery O2 Flow Rate FiO2 07/05/19 11:07 97.8 87 20 163/72 (102) 96 Nasal Cannula 6.0 97.8 General: Alert, Oriented X4, No acute distress Lungs: Crackles Cardiovascular: S1, S2 Abdomen: Soft, Non-tender Extremities: No Edema Labs Laboratory Tests Test 07/04/19 16:45 White Blood Count 20.2 x10^3/uL (4.0-11.0) Red Blood Count 2.82 x10^6/uL (4.30-5.70) Hemoglobin 8.9 g/dL (13.0-17.5) Hematocrit 27.0 % (39.0-53.0) Mean Corpuscular Volume 96 fL (79-100) Mean Corpuscular Hemoglobin 32 pg (25-35) Mean Corpuscular Hemoglobin Concent 33 g/dL (31-37) Red Cell Distribution Width 20.6 % (11.5-14.5) Platelet Count 210 x10^3/uL (140-400) Neutrophils (%) (Auto) 87 % (31-73) Lymphocytes (%) (Auto) 4 % (24-48) Monocytes (%) (Auto) 8 % (0-9) Eosinophils (%) (Auto) 0 % (0-3) Basophils (%) (Auto) 1 % (0-3) Neutrophils # (Auto) 17.6 x10^3/uL (1.8-7.7) Lymphocytes # (Auto) 0.9 x10^3/uL (1.0-4.8) Monocytes # (Auto) 1.6 x10^3/uL (0.0-1.1) Eosinophils # (Auto) 0.0 x10^3/uL (0.0-0.7) Basophils # (Auto) 0.2 x10^3/uL (0.0-0.2) Segmented Neutrophils % 69 % (35-66) Band Neutrophils % 20 % (0-9) Lymphocytes % 5 % (24-48) Monocytes % 6 % (0-10) Toxic Granulation Slight Dohle Bodies Present Platelet Estimate Adequate (ADEQUATE) Poikilocytosis Slight Anisocytosis Mod Ovalocytes Occ Stomatocytes Schistocytes Occ Sodium Level 139 mmol/L (136-145) Potassium Level 3.7 mmol/L (3.5-5.1) Chloride Level 101 mmol/L (98-107) Carbon Dioxide Level 29 mmol/L (21-32) Anion Gap 9 (6-14) Blood Urea Nitrogen 25 mg/dL (8-26) Creatinine 1.3 mg/dL (0.7-1.3) Estimated GFR (Cockcroft-Gault) 52.7 BUN/Creatinine Ratio 19 (6-20) Glucose Level 123 mg/dL (70-99) Lactic Acid Level 1.4 mmol/L (0.4-2.0) Calcium Level 8.3 mg/dL (8.5-10.1) Total Bilirubin 1.0 mg/dL (0.2-1.0) Aspartate Amino Transf (AST/SGOT) 14 U/L (15-37) Alanine Aminotransferase (ALT/SGPT) 12 U/L (16-63) Alkaline Phosphatase 78 U/L (46-116) Troponin I Quantitative < 0.017 ng/mL (0.000-0.055) GT-Dyr-L-Type Natriuretic Peptide 746 pg/mL (0-449) Total Protein 7.3 g/dL (6.4-8.2) Albumin 3.1 g/dL (3.4-5.0) Albumin/Globulin Ratio 0.7 (1.0-1.7) Influenza Type A Antigen Negative (NEGATIVE) Influenza Type B Antigen Negative (NEGATIVE) Laboratory Tests Test 07/04/19 16:45 White Blood Count 20.2 x10^3/uL (4.0-11.0) Red Blood Count 2.82 x10^6/uL (4.30-5.70) Hemoglobin 8.9 g/dL (13.0-17.5) Hematocrit 27.0 % (39.0-53.0) Mean Corpuscular Volume 96 fL (79-100) Mean Corpuscular Hemoglobin 32 pg (25-35) Mean Corpuscular Hemoglobin Concent 33 g/dL (31-37) Red Cell Distribution Width 20.6 % (11.5-14.5) Platelet Count 210 x10^3/uL (140-400) Neutrophils (%) (Auto) 87 % (31-73) Lymphocytes (%) (Auto) 4 % (24-48) Monocytes (%) (Auto) 8 % (0-9) Eosinophils (%) (Auto) 0 % (0-3) Basophils (%) (Auto) 1 % (0-3) Neutrophils # (Auto) 17.6 x10^3/uL (1.8-7.7) Lymphocytes # (Auto) 0.9 x10^3/uL (1.0-4.8) Monocytes # (Auto) 1.6 x10^3/uL (0.0-1.1) Eosinophils # (Auto) 0.0 x10^3/uL (0.0-0.7) Basophils # (Auto) 0.2 x10^3/uL (0.0-0.2) Segmented Neutrophils % 69 % (35-66) Band Neutrophils % 20 % (0-9) Lymphocytes % 5 % (24-48) Monocytes % 6 % (0-10) Toxic Granulation Slight Dohle Bodies Present Platelet Estimate Adequate (ADEQUATE) Poikilocytosis Slight Anisocytosis Mod Ovalocytes Occ Stomatocytes Schistocytes Occ Sodium Level 139 mmol/L (136-145) Potassium Level 3.7 mmol/L (3.5-5.1) Chloride Level 101 mmol/L (98-107) Carbon Dioxide Level 29 mmol/L (21-32) Anion Gap 9 (6-14) Blood Urea Nitrogen 25 mg/dL (8-26) Creatinine 1.3 mg/dL (0.7-1.3) Estimated GFR (Cockcroft-Gault) 52.7 BUN/Creatinine Ratio 19 (6-20) Glucose Level 123 mg/dL (70-99) Lactic Acid Level 1.4 mmol/L (0.4-2.0) Calcium Level 8.3 mg/dL (8.5-10.1) Total Bilirubin 1.0 mg/dL (0.2-1.0) Aspartate Amino Transf (AST/SGOT) 14 U/L (15-37) Alanine Aminotransferase (ALT/SGPT) 12 U/L (16-63) Alkaline Phosphatase 78 U/L (46-116) Troponin I Quantitative < 0.017 ng/mL (0.000-0.055) LF-Xsd-Z-Type Natriuretic Peptide 746 pg/mL (0-449) Total Protein 7.3 g/dL (6.4-8.2) Albumin 3.1 g/dL (3.4-5.0) Albumin/Globulin Ratio 0.7 (1.0-1.7) Influenza Type A Antigen Negative (NEGATIVE) Influenza Type B Antigen Negative (NEGATIVE) Medications Active Scripts Medications Dose Route/Sig Max Daily Dose Days Date Category Lactulose 20 Gm/30 Ml Solution 20 Gm PO BID PRN 06/14/18 Rx Doxycycline Hyclate 100 Mg Tablet 1 Tab PO BID 06/14/18 Rx Guaifenesin-Codeine Syrup (Guaifenesin/Codeine Phosphate) 5 Ml Liquid 5-10 Ml PO PRN Q4HRS PRN 06/28/15 Rx Albuterol Sulfate Neb Soln (Albuterol Sulfate) 2.5 Mg/3 Ml Vial.neb 1 Vial NEB PRN Q4HRS PRN 06/27/15 Reported Tylenol (Acetaminophen) 325 Mg Tablet 650 Mg PO PRN Q6HRS PRN 06/03/15 Rx Cardizem Cd (Diltiazem Hcl) 240 Mg Cap.er.24h 240 Mg PO DAILY 06/07/14 Reported Xanax (Alprazolam) 0.25 Mg Tablet 0.25 Mg PO TID PRN PRN 12/12/13 Reported Lisinopril 40 Mg Tablet 40 Mg PO DAILY 12/12/13 Reported Impression . full note dictated will check a CT Chest agree with treatment for pneumonia FOREIGN PEREZ MD Jul 05, 2019 14:06
--- NOTE | 2019-07-05 14:10 | PDOC ---
[facility] PROGRESS NOTE Chief Complaint Chief Complaint CAP with sepsis but no organ dysfcn - sent to ER by PCP Hypoxic respi failure COPD exacerbation Ex smoker HTN, CAD/CHF, OA, - chronic stable - ok to resume all home meds History of Present Illness History of Present Illness 07/05/19 Pt seen and examined. When asked how he is feeling, he says he has "seen better days." Reports shortness of breath. Alert and oriented and conversant, sitting up in bed. Discussed with nurse. Vitals/I&O Vitals/I&O: Vital Signs Date Time Temp Pulse Resp B/P (MAP) Pulse Ox O2 Delivery O2 Flow Rate FiO2 07/05/19 11:07 97.8 87 20 163/72 (102) 96 Nasal Cannula 6.0 97.8 I & O 07/04/19 07/04/19 07/05/19 15:00 23:00 07:00 Intake Total 1250 ml 110 ml Output Total 325 ml 425 ml Balance 925 ml -315 ml Physical Exam General: Alert, Oriented X3, Cooperative, No acute distress Heart: Regular rate, Normal S1, Normal S2 Lungs: Crackles Abdomen: Normal bowel sounds, Soft, No tenderness, No masses Extremities: No clubbing, No cyanosis, No edema, Normal pulses, No tenderness/swelling Skin: No rashes, No breakdown, No significant lesion Labs Labs: Laboratory Tests Test 07/04/19 16:45 White Blood Count 20.2 x10^3/uL (4.0-11.0) Red Blood Count 2.82 x10^6/uL (4.30-5.70) Hemoglobin 8.9 g/dL (13.0-17.5) Hematocrit 27.0 % (39.0-53.0) Mean Corpuscular Volume 96 fL (79-100) Mean Corpuscular Hemoglobin 32 pg (25-35) Mean Corpuscular Hemoglobin Concent 33 g/dL (31-37) Red Cell Distribution Width 20.6 % (11.5-14.5) Platelet Count 210 x10^3/uL (140-400) Neutrophils (%) (Auto) 87 % (31-73) Lymphocytes (%) (Auto) 4 % (24-48) Monocytes (%) (Auto) 8 % (0-9) Eosinophils (%) (Auto) 0 % (0-3) Basophils (%) (Auto) 1 % (0-3) Neutrophils # (Auto) 17.6 x10^3/uL (1.8-7.7) Lymphocytes # (Auto) 0.9 x10^3/uL (1.0-4.8) Monocytes # (Auto) 1.6 x10^3/uL (0.0-1.1) Eosinophils # (Auto) 0.0 x10^3/uL (0.0-0.7) Basophils # (Auto) 0.2 x10^3/uL (0.0-0.2) Segmented Neutrophils % 69 % (35-66) Band Neutrophils % 20 % (0-9) Lymphocytes % 5 % (24-48) Monocytes % 6 % (0-10) Toxic Granulation Slight Dohle Bodies Present Platelet Estimate Adequate (ADEQUATE) Poikilocytosis Slight Anisocytosis Mod Ovalocytes Occ Stomatocytes Schistocytes Occ Sodium Level 139 mmol/L (136-145) Potassium Level 3.7 mmol/L (3.5-5.1) Chloride Level 101 mmol/L (98-107) Carbon Dioxide Level 29 mmol/L (21-32) Anion Gap 9 (6-14) Blood Urea Nitrogen 25 mg/dL (8-26) Creatinine 1.3 mg/dL (0.7-1.3) Estimated GFR (Cockcroft-Gault) 52.7 BUN/Creatinine Ratio 19 (6-20) Glucose Level 123 mg/dL (70-99) Lactic Acid Level 1.4 mmol/L (0.4-2.0) Calcium Level 8.3 mg/dL (8.5-10.1) Total Bilirubin 1.0 mg/dL (0.2-1.0) Aspartate Amino Transf (AST/SGOT) 14 U/L (15-37) Alanine Aminotransferase (ALT/SGPT) 12 U/L (16-63) Alkaline Phosphatase 78 U/L (46-116) Troponin I Quantitative < 0.017 ng/mL (0.000-0.055) SR-Jhc-E-Type Natriuretic Peptide 746 pg/mL (0-449) Total Protein 7.3 g/dL (6.4-8.2) Albumin 3.1 g/dL (3.4-5.0) Albumin/Globulin Ratio 0.7 (1.0-1.7) Influenza Type A Antigen Negative (NEGATIVE) Influenza Type B Antigen Negative (NEGATIVE) Review of Systems Review of Systems: Shortness of breath No vomiting Assessment and Plan Assessmemt and Plan Problems Medical Problems: (1) COPD with acute exacerbation Status: Acute (2) Pneumonia Status: Acute (3) Rapid atrial fibrillation Status: Acute Assessment/Plan CAP with sepsis but no organ dysfcn Hypoxic respiratory failure COPD exacerbation Ex smoker HTN, CAD/CHF, OA, - chronic stable - ok to resume all home meds PLAN: IV abx nebulizer treatments on 02 per nasal cannula appreciate pulmonology input CBC, CMP PTOT DVT ppx Full code Comment Review of Relevant I have reviewed the following items [place] (where applicable) has been applied. Medications: Current Medications Medications (Trade) Dose Ordered Sig/Moraima Route PRN Reason Start Time Stop Time Status Last Admin Dose Admin Azithromycin 250 ml @ 250 mls/hr 1X ONCE IV 07/04/19 16:30 07/04/19 17:29 DC 07/04/19 17:05 Methylprednisolone Sodium Succinate (SOLU-Medrol 125MG VIAL) 125 mg 1X ONCE IV 07/04/19 16:30 07/04/19 16:31 DC 07/04/19 17:05 Albuterol/ Ipratropium (Duoneb) 3 ml 1X ONCE NEB 07/04/19 16:30 07/04/19 16:31 DC 07/04/19 17:04 Sodium Chloride 1,000 ml @ 1,000 mls/hr 1X ONCE IV 07/04/19 16:30 07/04/19 17:29 DC 07/04/19 17:06 Acetaminophen (Tylenol) 1,000 mg 1X ONCE PO 07/04/19 16:30 07/04/19 16:33 DC 07/04/19 17:05 Diltiazem HCl (Cardizem 24hr Cd) 240 mg DAILY PO 07/05/19 09:00 07/05/19 08:54 Guaifenesin/ Codeine Phosphate (Robitussin Ac) 10 ml QID PO 07/04/19 21:00 07/04/19 21:09 Lisinopril (Prinivil) 40 mg DAILY PO 07/05/19 09:00 07/05/19 08:55 Benzonatate (Tessalon Perle) 100 mg [id number] PO 07/04/19 21:00 07/04/19 21:09 Albuterol/ Ipratropium (Duoneb) 3 ml RTQID NEB 07/04/19 20:00 07/05/19 08:10 DC 07/04/19 20:28 Sodium Chloride 1,000 ml @ 80 mls/hr [id number] IV 07/04/19 17:45 07/04/19 21:10 Levofloxacin/ Dextrose 100 ml @ 100 mls/hr 1X ONCE IV 07/04/19 17:45 07/04/19 18:44 DC 07/05/19 09:48 Diltiazem HCl (Cardizem Iv Push) 10 mg 1X ONCE IVP 07/04/19 18:00 07/04/19 18:01 DC 07/04/19 18:11 Diltiazem HCl 125 mg/Dextrose 125 ml @ 5 mls/hr CONT PRN IV SEE I/O RECORD 07/04/19 18:00 07/05/19 10:12 DC 07/04/19 18:12 Non-Formulary Medication 1 ea PRN Q4HRS PRN INH SHORTNESS OF BREATH 07/04/19 20:45 07/05/19 05:31 Albuterol/ Ipratropium (Duoneb) 3 ml Q4HRS NEB 07/05/19 12:00 07/05/19 11:46 Lactobacillus Rhamnosus (Culturelle) 1 cap BID PO 07/05/19 11:00 07/05/19 11:22 HARDEEP ALMONTE III DO Jul 05, 2019 14:10
--- NOTE | 2019-07-05 16:02 | RAD ---
CT CHEST WO CONTRAST History: Infiltrates. Technique: Noncontrast CT of the chest was performed. Coronal and sagittal reconstructions were performed. Exposure: One or more of the following individualized dose reduction techniques were utilized for this examination: 1. Automated exposure control 2. Adjustment of the mA and/or kV according to patient size 3. Use of iterative reconstruction technique. Comparison: Chest x-ray July 04, 2019. Chest CT June 28, 2015. Findings: Chest: Mildly prominent mediastinal lymph nodes, unchanged compared to prior. Calcified bilateral hilar lymph nodes and calcified granulomas likely related to prior granulomatous disease. Mild gynecomastia. Coronary artery calcifications. Bilateral pleural plaques. Right lower lobe consolidation with air bronchograms and adjacent groundglass opacities. Severe pulmonary emphysema. Scattered pleural and parenchymal scarring. No pleural effusion. Upper abdomen: The imaged upper abdomen is unremarkable. Bones: No pathologic osseous lesions. Impression: 1. Right lower lobe consolidation with air bronchograms and adjacent groundglass opacities, concerning for pneumonia. Recommend follow-up to ensure resolution. 2. Severe pulmonary emphysema. 3. Multifocal pleural calcifications, may relate to prior asbestos exposure. Electronically signed by: David Narayan DO (07/05/2019 3:59 PM) [id number]
--- NOTE | 2019-07-05 21:31 | NUR ---
pt does not want the bed alarm on, gets very agitated and angry, will cont to monitor pt safety and status, call light in reach. pmrn
[2019-07-06] MEDS: IPRATRPIUM/ALBUTEROL 0.5/2.5MG 3 ML NEBU. NEB SCH ×7 (00:32→23:19)
[2019-07-06 03:10] VITALS: BP 131/60
--- NOTE | 2019-07-06 03:43 | CONS ---
DATE OF CONSULTATION: 07/05/2019 ATTENDING PHYSICIAN: Dr. Lujan. REASON FOR CONSULTATION: The patient is seen in pulmonary consultation at the request of Dr. Lujan for abnormal x-ray revealing right lower lobe airspace disease. HISTORY OF PRESENT ILLNESS: The patient is an 83-year-old who presented to the Emergency Room from his PCP's office. He has underlying COPD, currently on oxygen supplementation for chronic respiratory failure, on 6 liters. The patient presented and had an O2 saturation of 80%. He was then transferred to the Emergency Department for further evaluation and management. He underwent a chest x-ray revealing evidence of airspace disease on the right lower lobe in comparison to prior films. The patient has had previous pneumonia in the past. He was last seen here back in 2014. At that time, he had a new chest x-ray revealing evidence of infiltrate. The patient was treated and discharged home. He denies fever or chills. No hemoptysis. No recent travel. PAST MEDICAL HISTORY: Chronic respiratory failure, asbestos exposure, COPD, history of hypertension, history of tobacco use, quit approximately 5 years ago. He also has a history of chronic atrial fibrillation. PAST SURGICAL HISTORY: He has had no recent major surgeries. He has had previous stent placements, coronary stent and lower extremity stenting. REVIEW OF SYSTEMS: CONSTITUTIONAL: No fever or chills. EYES: No change in visual acuity. HENT: No nasal congestion or sore throat. PULMONARY: As indicated above. CARDIOVASCULAR: No chest pain or pressure. GASTROINTESTINAL: No nausea, vomiting, or diarrhea. GENITOURINARY: No dysuria or frequency. MUSCULOSKELETAL: No localized muscle aches or joint pains. SKIN: No new skin rashes. SOCIAL HISTORY: He has been exposed to asbestos, currently not smoking. FAMILY HISTORY: No family history of lung cancer. ALLERGIES: No known drug allergies. PHYSICAL EXAMINATION: VITAL SIGNS: Stable. O2 saturation was greater than 92%. T-max was 101.3. HEENT: Eyes, the sclerae were nonicteric. NECK: Jugular venous distention was not elevated. No lymphadenopathy. CHEST: Full expansion. LUNGS: Increased breath sounds on the right. No wheezes. CARDIOVASCULAR: Regular rate and rhythm with S1, S2, no S3. ABDOMEN: Soft, nontender, nondistended. EXTREMITIES: No clubbing, cyanosis, or edema. NEUROLOGIC: The patient was awake, alert, following commands. A detailed neuro exam was not performed. LABORATORY DATA: White count was 20,000, hemoglobin of 8.9, hematocrit of 27. Electrolytes were noted. Albumin was low. BNP was elevated. Serology for influenza was negative. IMPRESSION: 1. Acute on chronic respiratory failure secondary to underlying chronic obstructive pulmonary disease, interstitial lung disease and new pneumonia. 2. Right-sided airspace disease compatible with pneumonia, suspect gram-negative, possibly gram-positive. 3. 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 4. Multiple comorbidities including hyperlipidemia, coronary artery disease with previous stenting, diverticulosis, chronic anemia. 5. Acute exacerbation of chronic obstructive pulmonary disease. PLAN: 1. We will continue current IV antibiotics. 2. Obtain CT chest with no contrast. 3. Continue home meds. 4. DVT and GI prophylaxis. 5. Add steroids. I do appreciate the privilege in sharing in the patient's care. FOREIGN PEREZ MD DR: PADMINI/francisco JOB#: [id number] / [id number]
[2019-07-06 07:00] VITALS: BP 184/76
[2019-07-06] MEDS: LISINOPRIL 20 MG TABLET PO SCH (08:10)
[2019-07-06] MEDS: BENZONATATE 100 MG CAPSULE. PO SCH ×3 (08:11→20:26)
[2019-07-06] MEDS: LACTOBACILLUS RHAMNOSUS GG 1 CAPSULE. PO SCH ×2 (08:12→20:26)
[2019-07-06] MEDS: guaiFENesin/CODEINE 100mg/10mg 5 ML LIQUID PO SCH ×2 (08:12→13:14)
--- NOTE | 2019-07-06 09:53 | PDOC ---
PULMONARY PROGRESS NOTES Subjective PT FEELS BETTER STILL SOA AND WEAK COUGH NON PRODUCTIVE Vitals Vital Signs Date Time Temp Pulse Resp B/P (MAP) Pulse Ox O2 Delivery O2 Flow Rate FiO2 07/06/19 08:12 83 162/70 07/06/19 08:00 Nasal Cannula 5.0 07/06/19 07:36 97 07/06/19 07:00 98.3 22 98.3 ROS: No Nausea, No Abdominal Pain, No Increase Cough General: Alert, No acute distress Lungs: Crackles Cardiovascular: S1, S2 Abdomen: Soft, Non-tender Neuro Exam: Alert Extremities: No Edema Labs Laboratory Tests Test 07/04/19 16:45 White Blood Count 20.2 x10^3/uL (4.0-11.0) Red Blood Count 2.82 x10^6/uL (4.30-5.70) Hemoglobin 8.9 g/dL (13.0-17.5) Hematocrit 27.0 % (39.0-53.0) Mean Corpuscular Volume 96 fL (79-100) Mean Corpuscular Hemoglobin 32 pg (25-35) Mean Corpuscular Hemoglobin Concent 33 g/dL (31-37) Red Cell Distribution Width 20.6 % (11.5-14.5) Platelet Count 210 x10^3/uL (140-400) Neutrophils (%) (Auto) 87 % (31-73) Lymphocytes (%) (Auto) 4 % (24-48) Monocytes (%) (Auto) 8 % (0-9) Eosinophils (%) (Auto) 0 % (0-3) Basophils (%) (Auto) 1 % (0-3) Neutrophils # (Auto) 17.6 x10^3/uL (1.8-7.7) Lymphocytes # (Auto) 0.9 x10^3/uL (1.0-4.8) Monocytes # (Auto) 1.6 x10^3/uL (0.0-1.1) Eosinophils # (Auto) 0.0 x10^3/uL (0.0-0.7) Basophils # (Auto) 0.2 x10^3/uL (0.0-0.2) Segmented Neutrophils % 69 % (35-66) Band Neutrophils % 20 % (0-9) Lymphocytes % 5 % (24-48) Monocytes % 6 % (0-10) Toxic Granulation Slight Dohle Bodies Present Platelet Estimate Adequate (ADEQUATE) Poikilocytosis Slight Anisocytosis Mod Ovalocytes Occ Stomatocytes Schistocytes Occ Sodium Level 139 mmol/L (136-145) Potassium Level 3.7 mmol/L (3.5-5.1) Chloride Level 101 mmol/L (98-107) Carbon Dioxide Level 29 mmol/L (21-32) Anion Gap 9 (6-14) Blood Urea Nitrogen 25 mg/dL (8-26) Creatinine 1.3 mg/dL (0.7-1.3) Estimated GFR (Cockcroft-Gault) 52.7 BUN/Creatinine Ratio 19 (6-20) Glucose Level 123 mg/dL (70-99) Lactic Acid Level 1.4 mmol/L (0.4-2.0) Calcium Level 8.3 mg/dL (8.5-10.1) Total Bilirubin 1.0 mg/dL (0.2-1.0) Aspartate Amino Transf (AST/SGOT) 14 U/L (15-37) Alanine Aminotransferase (ALT/SGPT) 12 U/L (16-63) Alkaline Phosphatase 78 U/L (46-116) Troponin I Quantitative < 0.017 ng/mL (0.000-0.055) NS-Dpo-E-Type Natriuretic Peptide 746 pg/mL (0-449) Total Protein 7.3 g/dL (6.4-8.2) Albumin 3.1 g/dL (3.4-5.0) Albumin/Globulin Ratio 0.7 (1.0-1.7) Influenza Type A Antigen Negative (NEGATIVE) Influenza Type B Antigen Negative (NEGATIVE) Medications Active Scripts Medications Dose Route/Sig Max Daily Dose Days Date Category Lactulose 20 Gm/30 Ml Solution 20 Gm PO BID PRN 06/14/18 Rx Doxycycline Hyclate 100 Mg Tablet 1 Tab PO BID 06/14/18 Rx Guaifenesin-Codeine Syrup (Guaifenesin/Codeine Phosphate) 5 Ml Liquid 5-10 Ml PO PRN Q4HRS PRN 06/28/15 Rx Albuterol Sulfate Neb Soln (Albuterol Sulfate) 2.5 Mg/3 Ml Vial.neb 1 Vial NEB PRN Q4HRS PRN 10/29/15 Reported Tylenol (Acetaminophen) 325 Mg Tablet 650 Mg PO PRN Q6HRS PRN 06/03/15 Rx Cardizem Cd (Diltiazem Hcl) 240 Mg Cap.er.24h 240 Mg PO DAILY 06/07/14 Reported Xanax (Alprazolam) 0.25 Mg Tablet 0.25 Mg PO TID PRN PRN 12/12/13 Reported Lisinopril 40 Mg Tablet 40 Mg PO DAILY 12/12/13 Reported Impression . IMPRESSION: 1. Acute on chronic respiratory failure secondary to underlying chronic obstructive pulmonary disease, interstitial lung disease and new pneumonia. 2. Right-sided airspace disease compatible with pneumonia, suspect gram-negative, possibly gram-positive. 3. 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 4. Multiple comorbidities including hyperlipidemia, coronary artery disease with previous stenting, diverticulosis, chronic anemia. 5. Acute exacerbation of chronic obstructive pulmonary disease. Impression: 1. Right lower lobe consolidation with air bronchograms and adjacent groundglass opacities, concerning for pneumonia. Recommend follow-up to ensure resolution. 2. Severe pulmonary emphysema. 3. Multifocal pleural calcifications, may relate to prior asbestos exposure. Electronically signed by: David Narayan DO (07/05/2019 3:59 PM) [facility] Plan . PT STILL SOA HOPEFULLY HOME IN AM D/W RN AND DAUGHTER REPEAT CT IN 2 MONTHS PLAN: 1. We will continue current IV antibiotics. 2. Obtain CT chest with no contrast. 3. Continue home meds. 4. DVT and GI prophylaxis. 5. Add steroids. FOREIGN PEREZ MD Jul 06, 2019 09:53
[2019-07-06 11:00] VITALS: BP 172/73
--- NOTE | 2019-07-06 12:03 | PDOC ---
[employer] PROGRESS NOTE Chief Complaint Chief Complaint CAP with sepsis Hypoxic respiratory failure - improved COPD exacerbation Ex smoker HTN, CAD/CHF, OA History of Present Illness History of Present Illness 07/06/19 Pt seen and examined. Pt standing in room. Says he is ready to go. Breathing improved. Discussed with . Discussed with nurse. 07/05/19 Pt seen and examined. When asked how he is feeling, he says he has "seen better days." Reports shortness of breath. Alert and oriented and conversant, sitting up in bed. Discussed with nurse. Vitals/I&O Vitals/I&O: Vital Signs Date Time Temp Pulse Resp B/P (MAP) Pulse Ox O2 Delivery O2 Flow Rate FiO2 07/06/19 11:09 Nasal Cannula 5.0 07/06/19 11:00 98.1 77 22 172/73 (106) 97 98.1 I & O 0 07/05/19 07/05/19 07/06/19 15:00 23:00 07:00 Intake Total 240 ml 340 ml Output Total 225 ml Balance 240 ml 340 ml -225 ml Physical Exam General: Alert, Oriented X3, Cooperative, No acute distress Heart: Regular rate, Normal S1, Normal S2 Lungs: Wheezing, Crackles Abdomen: Normal bowel sounds, Soft, No tenderness, No masses Extremities: No clubbing, No cyanosis, No edema, No tenderness/swelling Skin: No rashes, No breakdown, No significant lesion Review of Systems Review of Systems: Yes wheezing Yes productive cough Assessment and Plan Assessmemt and Plan Problems Medical Problems: (1) COPD with acute exacerbation Status: Acute (2) Pneumonia Status: Acute (3) Rapid atrial fibrillation Status: Acute Assessment: CAP with sepsis Hypoxic respiratory failure - improved COPD exacerbation Ex smoker HTN, CAD/CHF, OA PLAN: cardiac monitoring IV abx nebulizer treatments on 02 per nasal cannula steroids Tessalon perles guaifenesin Discharge when OK with pulmonology CBC, CMP PTOT DVT ppx Full code Comment Review of Relevant I have reviewed the following items [place] (where applicable) has been applied. Medications: Current Medications Medications (Trade) Dose Ordered Sig/Moraima Route PRN Reason Start Time Stop Time Status Last Admin Dose Admin Albuterol/ Ipratropium (Duoneb) 3 ml Q4HRS NEB 07/05/19 12:00 07/06/19 11:08 HARDEEP ALMONTE III DO Jul 06, 2019 12:03
--- NOTE | 2019-07-06 12:30 | NUR ---
SS following up with discharge planning. Pt reports having oxygen at home through [employer], ; fax [phone]. SS will continue to follow for discharge planning.
[2019-07-06 15:00] VITALS: BP 175/73
[2019-07-06 19:00] VITALS: BP 163/72
[2019-07-06] MEDS: ALPRAZolam 0.25 MG TABLET PO PRN (22:59)
[2019-07-06 23:00] VITALS: BP 153/69
[2019-07-07] VITALS (7 sets, daily range): BP systolic 131–177; BP diastolic 60–77
[2019-07-07] MEDS: IPRATRPIUM/ALBUTEROL 0.5/2.5MG 3 ML NEBU. NEB SCH ×6 (03:15→23:50)
[2019-07-07 03:54] LABS: BASO % 0 % (0-3); EOS % 0 % (0-3); HEMATOCRIT 28.7 % (39.0-53.0); HEMOGLOBIN 9.3 g/dL (13.0-17.5); LYMPH # 0.9 x10^3/uL (1.0-4.8); LYMPH % 5 % (24-48); MEAN CORPUSCULAR HEMOGLOBIN 31 pg (25-35); MEAN CORPUSCULAR HGB CONC 32 g/dL (31-37); MEAN CORPUSCULAR VOLUME 96 fL (79-100); MONO # 1.2 x10^3/uL (0.0-1.1); MONO % 7 % (0-9); NEUT # 14.6 x10^3/uL (1.8-7.7); NEUT % 87 % (31-73); PLATELET COUNT 301 x10^3/uL (140-400); RED CELL DISTRIBUTION WIDTH 20.9 % (11.5-14.5); WHITE BLOOD COUNT 16.8 x10^3/uL (4.0-11.0)
[2019-07-07 04:10] LABS: ALBUMIN 2.8 g/dL (3.4-5.0); ALBUMIN/GLOBULIN RATIO 0.6 (1.0-1.7); CALCIUM 8.2 mg/dL (8.5-10.1); CREATININE 1.1 mg/dL (0.7-1.3); GFR 63.9; POTASSIUM 3.8 mmol/L (3.5-5.1); TOTAL BILIRUBIN 0.5 mg/dL (0.2-1.0); TOTAL PROTEIN 7.2 g/dL (6.4-8.2)
--- NOTE | 2019-07-07 06:27 | NUR ---
Pt had run of svt, asymptomatic, appears asleep, rn had pt to bear down and cough and now back in [facility]bi controlled will cont to monitor pt status and safety. Will inform and sherry rn pmrn
[2019-07-07] MEDS: LISINOPRIL 20 MG TABLET PO SCH (09:04)
[2019-07-07] MEDS: BENZONATATE 100 MG CAPSULE. PO SCH ×3 (09:04→20:34)
[2019-07-07] MEDS: LACTOBACILLUS RHAMNOSUS GG 1 CAPSULE. PO SCH ×2 (09:04→20:34)
--- NOTE | 2019-07-07 09:29 | PDOC ---
PULMONARY PROGRESS NOTES Subjective PT WEAK BUT READY FOR D/C Vitals Vital Signs Date Time Temp Pulse Resp B/P (MAP) Pulse Ox O2 Delivery O2 Flow Rate FiO2 07/07/19 09:04 89 172/68 07/07/19 07:14 90 Nasal Cannula 5.0 07/07/19 07:00 98.7 20 98.7 ROS: No Nausea, No Chest Pain, No Abdominal Pain, No Increase Cough General: Alert, No acute distress Lungs: Crackles Cardiovascular: S1, S2 Abdomen: Soft, Non-tender Neuro Exam: Alert Extremities: No Edema Skin: Warm Labs Laboratory Tests Test 07/07/19 03:00 White Blood Count 16.8 x10^3/uL (4.0-11.0) Red Blood Count 3.00 x10^6/uL (4.30-5.70) Hemoglobin 9.3 g/dL (13.0-17.5) Hematocrit 28.7 % (39.0-53.0) Mean Corpuscular Volume 96 fL (79-100) Mean Corpuscular Hemoglobin 31 pg (25-35) Mean Corpuscular Hemoglobin Concent 32 g/dL (31-37) Red Cell Distribution Width 20.9 % (11.5-14.5) Platelet Count 301 x10^3/uL (140-400) Neutrophils (%) (Auto) 87 % (31-73) Lymphocytes (%) (Auto) 5 % (24-48) Monocytes (%) (Auto) 7 % (0-9) Eosinophils (%) (Auto) 0 % (0-3) Basophils (%) (Auto) 0 % (0-3) Neutrophils # (Auto) 14.6 x10^3/uL (1.8-7.7) Lymphocytes # (Auto) 0.9 x10^3/uL (1.0-4.8) Monocytes # (Auto) 1.2 x10^3/uL (0.0-1.1) Eosinophils # (Auto) 0.0 x10^3/uL (0.0-0.7) Basophils # (Auto) 0.0 x10^3/uL (0.0-0.2) Sodium Level 146 mmol/L (136-145) Potassium Level 3.8 mmol/L (3.5-5.1) Chloride Level 108 mmol/L (98-107) Carbon Dioxide Level 30 mmol/L (21-32) Anion Gap 8 (6-14) Blood Urea Nitrogen 22 mg/dL (8-26) Creatinine 1.1 mg/dL (0.7-1.3) Estimated GFR (Cockcroft-Gault) 63.9 BUN/Creatinine Ratio 20 (6-20) Glucose Level 110 mg/dL (70-99) Calcium Level 8.2 mg/dL (8.5-10.1) Total Bilirubin 0.5 mg/dL (0.2-1.0) Aspartate Amino Transf (AST/SGOT) 22 U/L (15-37) Alanine Aminotransferase (ALT/SGPT) 23 U/L (16-63) Alkaline Phosphatase 86 U/L (46-116) Total Protein 7.2 g/dL (6.4-8.2) Albumin 2.8 g/dL (3.4-5.0) Albumin/Globulin Ratio 0.6 (1.0-1.7) Laboratory Tests Test 07/07/19 03:00 White Blood Count 16.8 x10^3/uL (4.0-11.0) Red Blood Count 3.00 x10^6/uL (4.30-5.70) Hemoglobin 9.3 g/dL (13.0-17.5) Hematocrit 28.7 % (39.0-53.0) Mean Corpuscular Volume 96 fL (79-100) Mean Corpuscular Hemoglobin 31 pg (25-35) Mean Corpuscular Hemoglobin Concent 32 g/dL (31-37) Red Cell Distribution Width 20.9 % (11.5-14.5) Platelet Count 301 x10^3/uL (140-400) Neutrophils (%) (Auto) 87 % (31-73) Lymphocytes (%) (Auto) 5 % (24-48) Monocytes (%) (Auto) 7 % (0-9) Eosinophils (%) (Auto) 0 % (0-3) Basophils (%) (Auto) 0 % (0-3) Neutrophils # (Auto) 14.6 x10^3/uL (1.8-7.7) Lymphocytes # (Auto) 0.9 x10^3/uL (1.0-4.8) Monocytes # (Auto) 1.2 x10^3/uL (0.0-1.1) Eosinophils # (Auto) 0.0 x10^3/uL (0.0-0.7) Basophils # (Auto) 0.0 x10^3/uL (0.0-0.2) Sodium Level 146 mmol/L (136-145) Potassium Level 3.8 mmol/L (3.5-5.1) Chloride Level 108 mmol/L (98-107) Carbon Dioxide Level 30 mmol/L (21-32) Anion Gap 8 (6-14) Blood Urea Nitrogen 22 mg/dL (8-26) Creatinine 1.1 mg/dL (0.7-1.3) Estimated GFR (Cockcroft-Gault) 63.9 BUN/Creatinine Ratio 20 (6-20) Glucose Level 110 mg/dL (70-99) Calcium Level 8.2 mg/dL (8.5-10.1) Total Bilirubin 0.5 mg/dL (0.2-1.0) Aspartate Amino Transf (AST/SGOT) 22 U/L (15-37) Alanine Aminotransferase (ALT/SGPT) 23 U/L (16-63) Alkaline Phosphatase 86 U/L (46-116) Total Protein 7.2 g/dL (6.4-8.2) Albumin 2.8 g/dL (3.4-5.0) Albumin/Globulin Ratio 0.6 (1.0-1.7) Medications Active Scripts Medications Dose Route/Sig Max Daily Dose Days Date Category Lactulose 20 Gm/30 Ml Solution 20 Gm PO BID PRN 06/14/18 Rx Doxycycline Hyclate 100 Mg Tablet 1 Tab PO BID 06/14/18 Rx Guaifenesin-Codeine Syrup (Guaifenesin/Codeine Phosphate) 5 Ml Liquid 5-10 Ml PO PRN Q4HRS PRN 06/28/15 Rx Albuterol Sulfate Neb Soln (Albuterol Sulfate) 2.5 Mg/3 Ml Vial.neb 1 Vial NEB PRN Q4HRS PRN 06/27/15 Reported Tylenol (Acetaminophen) 325 Mg Tablet 650 Mg PO PRN Q6HRS PRN 06/03/15 Rx Cardizem Cd (Diltiazem Hcl) 240 Mg Cap.er.24h 240 Mg PO DAILY 06/07/14 Reported Xanax (Alprazolam) 0.25 Mg Tablet 0.25 Mg PO TID PRN PRN 12/12/13 Reported Lisinopril 40 Mg Tablet 40 Mg PO DAILY 12/12/13 Reported Impression . IMPRESSION: 1. Acute on chronic respiratory failure secondary to underlying chronic obstructive pulmonary disease, interstitial lung disease and new pneumonia. 2. Right-sided airspace disease compatible with pneumonia, suspect gram-negative, possibly gram-positive. 3. 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 4. Multiple comorbidities including hyperlipidemia, coronary artery disease with previous stenting, diverticulosis, chronic anemia. 5. Acute exacerbation of chronic obstructive pulmonary disease. Impression: 1. Right lower lobe consolidation with air bronchograms and adjacent groundglass opacities, concerning for pneumonia. Recommend follow-up to ensure resolution. 2. Severe pulmonary emphysema. 3. Multifocal pleural calcifications, may relate to prior asbestos exposure. Electronically signed by: David Narayan DO (07/05/2019 3:59 PM) [facility] Plan . OK TO DC RX FOR AUGUMENTIN FOLLOW UP IN MY OFFICE NEXT WEEK REPEAT CT IN 2 MONTHS FOREIGN PEREZ MD Jul 07, 2019 09:29
[2019-07-07] MEDS: ACETAMINOPHEN 325 MG TABLET. PO PRN ×2 (11:54→22:56)
--- NOTE | 2019-07-07 12:35 | PDOC ---
[employer] PROGRESS NOTE Chief Complaint Chief Complaint CAP with sepsis Hypoxic respiratory failure - improved COPD exacerbation Ex smoker HTN, CAD/CHF, OA History of Present Illness History of Present Illness Patient is an 83-year-old male who presents to the emergency department for evaluation, from his PCPs office. The patient states that he has a history of COPD, and is currently on 6 L of oxygen chronically at home. He states he has b een having increasing shortness of breath over the past few weeks, along with cough productive of grayish sputum. He denies any pain, nausea, or vomiting. He went to his PCPs office today and was found to have maximal oxygen saturation in the 80s so was sent to the emergency department for further evaluation and treatment. He denies any orthopnea, pleuritic pain, dizziness or light headedness. He is noted to be febrile upon arrival to the emergency department. There are no alleviating or exacerbating factors to his symptoms otherwise. 07/06/19 Pt seen and examined. Pt standing in room. Says he is ready to go. Breathing improved. Discussed with . Discussed with nurse. 07/05/19 Pt seen and examined. When asked how he is feeling, he says he has "seen better days." Reports shortness of breath. Alert and oriented and conversant, sitting up in bed. Discussed with nurse. 07/07: Patient seen and examined on medical floor. Patient complains of being short of breath overnight, and throughout today. DW respiratory therapist who had just treated him, who states that the patient is doing better now. Patient's cough remains productive. Vitals/I&O Vitals/I&O: Vital Signs Date Time Temp Pulse Resp B/P (MAP) Pulse Ox O2 Delivery O2 Flow Rate FiO2 07/07/19 11:00 100.4 90 20 177/74 (108) 94 Nasal Cannula 6.0 100.4 I & O 07/06/19 07/06/19 07/07/19 15:00 23:00 07:00 Intake Total 240 ml Output Total 150 ml 325 ml Balance -150 ml -85 ml Physical Exam General: Alert, Oriented X3, Cooperative, No acute distress Heart: Regular rate, Normal S1, Normal S2 Lungs: Wheezing, Crackles Abdomen: Normal bowel sounds, Soft, No tenderness, No masses Extremities: No clubbing, No cyanosis, No edema, No tenderness/swelling Skin: No rashes, No breakdown, No significant lesion Labs Labs: Laboratory Tests Test 07/07/19 03:00 White Blood Count 16.8 x10^3/uL (4.0-11.0) Red Blood Count 3.00 x10^6/uL (4.30-5.70) Hemoglobin 9.3 g/dL (13.0-17.5) Hematocrit 28.7 % (39.0-53.0) Mean Corpuscular Volume 96 fL (79-100) Mean Corpuscular Hemoglobin 31 pg (25-35) Mean Corpuscular Hemoglobin Concent 32 g/dL (31-37) Red Cell Distribution Width 20.9 % (11.5-14.5) Platelet Count 301 x10^3/uL (140-400) Neutrophils (%) (Auto) 87 % (31-73) Lymphocytes (%) (Auto) 5 % (24-48) Monocytes (%) (Auto) 7 % (0-9) Eosinophils (%) (Auto) 0 % (0-3) Basophils (%) (Auto) 0 % (0-3) Neutrophils # (Auto) 14.6 x10^3/uL (1.8-7.7) Lymphocytes # (Auto) 0.9 x10^3/uL (1.0-4.8) Monocytes # (Auto) 1.2 x10^3/uL (0.0-1.1) Eosinophils # (Auto) 0.0 x10^3/uL (0.0-0.7) Basophils # (Auto) 0.0 x10^3/uL (0.0-0.2) Sodium Level 146 mmol/L (136-145) Potassium Level 3.8 mmol/L (3.5-5.1) Chloride Level 108 mmol/L (98-107) Carbon Dioxide Level 30 mmol/L (21-32) Anion Gap 8 (6-14) Blood Urea Nitrogen 22 mg/dL (8-26) Creatinine 1.1 mg/dL (0.7-1.3) Estimated GFR (Cockcroft-Gault) 63.9 BUN/Creatinine Ratio 20 (6-20) Glucose Level 110 mg/dL (70-99) Calcium Level 8.2 mg/dL (8.5-10.1) Total Bilirubin 0.5 mg/dL (0.2-1.0) Aspartate Amino Transf (AST/SGOT) 22 U/L (15-37) Alanine Aminotransferase (ALT/SGPT) 23 U/L (16-63) Alkaline Phosphatase 86 U/L (46-116) Total Protein 7.2 g/dL (6.4-8.2) Albumin 2.8 g/dL (3.4-5.0) Albumin/Globulin Ratio 0.6 (1.0-1.7) Review of Systems Review of Systems: Patient complains of SOB, denies N/V. Assessment and Plan Assessmemt and Plan Problems Medical Problems: (1) COPD with acute exacerbation Status: Acute (2) Pneumonia Status: Acute (3) Rapid atrial fibrillation Status: Acute Assessment: COPD with acute exacerbation, Pneumonia with sepsis. Plan: 1. continue IV Antibiotics 2. trend WBC count 3. trend labs 4. Continue respiratory therapy treatments 5. PT/OT 6. DVT prophylaxis 7. full code Comment Review of Relevant I have reviewed the following items [place] (where applicable) has been applied. Medications: Current Medications Medications (Trade) Dose Ordered Sig/Moraima Route PRN Reason Start Time Stop Time Status Last Admin Dose Admin Guaifenesin (Mucinex) 600 mg BID PO 07/06/19 21:00 07/07/19 09:04 HARDEEP ALMONTE III DO Jul 07, 2019 12:35
[2019-07-07] MEDS: ALPRAZolam 0.25 MG TABLET PO PRN ×2 (16:59→20:34)
[2019-07-08 03:15] VITALS: BP 151/52
[2019-07-08] MEDS: IPRATRPIUM/ALBUTEROL 0.5/2.5MG 3 ML NEBU. NEB SCH ×2 (03:20→09:08)
[2019-07-08 04:33] LABS: BASO # 0.1 x10^3/uL (0.0-0.2); BASO % 1 % (0-3); EOS # 0.1 x10^3/uL (0.0-0.7); EOS % 1 % (0-3); HEMATOCRIT 27.4 % (39.0-53.0); HEMOGLOBIN 9.1 g/dL (13.0-17.5); LYMPH # 1.5 x10^3/uL (1.0-4.8); LYMPH % 10 % (24-48); MEAN CORPUSCULAR HEMOGLOBIN 32 pg (25-35); MEAN CORPUSCULAR HGB CONC 33 g/dL (31-37); MEAN CORPUSCULAR VOLUME 96 fL (79-100); MONO # 1.5 x10^3/uL (0.0-1.1); MONO % 10 % (0-9); NEUT # 11.7 x10^3/uL (1.8-7.7); NEUT % 79 % (31-73); PLATELET COUNT 291 x10^3/uL (140-400); RED BLOOD COUNT 2.85 x10^6/uL (4.30-5.70); RED CELL DISTRIBUTION WIDTH 20.9 % (11.5-14.5); WHITE BLOOD COUNT 14.9 x10^3/uL (4.0-11.0)
[2019-07-08 04:54] LABS: ALBUMIN 2.6 g/dL (3.4-5.0); ALBUMIN/GLOBULIN RATIO 0.6 (1.0-1.7); CALCIUM 8.9 mg/dL (8.5-10.1); CREATININE 1.2 mg/dL (0.7-1.3); GFR 57.8; POTASSIUM 3.5 mmol/L (3.5-5.1); TOTAL BILIRUBIN 0.8 mg/dL (0.2-1.0)
[2019-07-08 07:00] VITALS: BP 175/77
[2019-07-08] MEDS: LACTOBACILLUS RHAMNOSUS GG 1 CAPSULE. PO SCH (08:45)
[2019-07-08] MEDS: BENZONATATE 100 MG CAPSULE. PO SCH (08:46)
[2019-07-08] MEDS: LISINOPRIL 20 MG TABLET PO SCH (08:47)
[2019-07-08] MEDS: ALPRAZolam 0.25 MG TABLET PO PRN (08:54)
[2019-07-08 11:00] VITALS: BP 169/111
--- NOTE | 2019-07-08 11:19 | PDOC ---
PULMONARY PROGRESS NOTES Subjective Pt. is on baseline line oxygen requirements, pt. is up ambulating reports some SOA on exertion denies cough Vitals Vital Signs Date Time Temp Pulse Resp B/P (MAP) Pulse Ox O2 Delivery O2 Flow Rate FiO2 07/08/19 09:08 94 Nasal Cannula 5.0 07/08/19 08:47 107 175/77 07/08/19 07:00 99.2 26 99.2 ROS: No Nausea, No Chest Pain, No Abdominal Pain, No Increase Cough General: Alert, No acute distress Lungs: Crackles Cardiovascular: S1, S2 Abdomen: Soft, Non-tender Neuro Exam: Alert Extremities: No Edema Skin: Warm Labs Laboratory Tests Test 07/07/19 03:00 07/08/19 04:15 White Blood Count 16.8 x10^3/uL (4.0-11.0) 14.9 x10^3/uL (4.0-11.0) Red Blood Count 3.00 x10^6/uL (4.30-5.70) 2.85 x10^6/uL (4.30-5.70) Hemoglobin 9.3 g/dL (13.0-17.5) 9.1 g/dL (13.0-17.5) Hematocrit 28.7 % (39.0-53.0) 27.4 % (39.0-53.0) Mean Corpuscular Volume 96 fL (79-100) 96 fL (79-100) Mean Corpuscular Hemoglobin 31 pg (25-35) 32 pg (25-35) Mean Corpuscular Hemoglobin Concent 32 g/dL (31-37) 33 g/dL (31-37) Red Cell Distribution Width 20.9 % (11.5-14.5) 20.9 % (11.5-14.5) Platelet Count 301 x10^3/uL (140-400) 291 x10^3/uL (140-400) Neutrophils (%) (Auto) 87 % (31-73) 79 % (31-73) Lymphocytes (%) (Auto) 5 % (24-48) 10 % (24-48) Monocytes (%) (Auto) 7 % (0-9) 10 % (0-9) Eosinophils (%) (Auto) 0 % (0-3) 1 % (0-3) Basophils (%) (Auto) 0 % (0-3) 1 % (0-3) Neutrophils # (Auto) 14.6 x10^3/uL (1.8-7.7) 11.7 x10^3/uL (1.8-7.7) Lymphocytes # (Auto) 0.9 x10^3/uL (1.0-4.8) 1.5 x10^3/uL (1.0-4.8) Monocytes # (Auto) 1.2 x10^3/uL (0.0-1.1) 1.5 x10^3/uL (0.0-1.1) Eosinophils # (Auto) 0.0 x10^3/uL (0.0-0.7) 0.1 x10^3/uL (0.0-0.7) Basophils # (Auto) 0.0 x10^3/uL (0.0-0.2) 0.1 x10^3/uL (0.0-0.2) Sodium Level 146 mmol/L (136-145) 145 mmol/L (136-145) Potassium Level 3.8 mmol/L (3.5-5.1) 3.5 mmol/L (3.5-5.1) Chloride Level 108 mmol/L (98-107) 107 mmol/L (98-107) Carbon Dioxide Level 30 mmol/L (21-32) 29 mmol/L (21-32) Anion Gap 8 (6-14) 9 (6-14) Blood Urea Nitrogen 22 mg/dL (8-26) 24 mg/dL (8-26) Creatinine 1.1 mg/dL (0.7-1.3) 1.2 mg/dL (0.7-1.3) Estimated GFR (Cockcroft-Gault) 63.9 57.8 BUN/Creatinine Ratio 20 (6-20) 20 (6-20) Glucose Level 110 mg/dL (70-99) 102 mg/dL (70-99) Calcium Level 8.2 mg/dL (8.5-10.1) 8.9 mg/dL (8.5-10.1) Total Bilirubin 0.5 mg/dL (0.2-1.0) 0.8 mg/dL (0.2-1.0) Aspartate Amino Transf (AST/SGOT) 22 U/L (15-37) 23 U/L (15-37) Alanine Aminotransferase (ALT/SGPT) 23 U/L (16-63) 29 U/L (16-63) Alkaline Phosphatase 86 U/L (46-116) 74 U/L (46-116) Total Protein 7.2 g/dL (6.4-8.2) 7.0 g/dL (6.4-8.2) Albumin 2.8 g/dL (3.4-5.0) 2.6 g/dL (3.4-5.0) Albumin/Globulin Ratio 0.6 (1.0-1.7) 0.6 (1.0-1.7) Laboratory Tests Test 07/08/19 04:15 White Blood Count 14.9 x10^3/uL (4.0-11.0) Red Blood Count 2.85 x10^6/uL (4.30-5.70) Hemoglobin 9.1 g/dL (13.0-17.5) Hematocrit 27.4 % (39.0-53.0) Mean Corpuscular Volume 96 fL (79-100) Mean Corpuscular Hemoglobin 32 pg (25-35) Mean Corpuscular Hemoglobin Concent 33 g/dL (31-37) Red Cell Distribution Width 20.9 % (11.5-14.5) Platelet Count 291 x10^3/uL (140-400) Neutrophils (%) (Auto) 79 % (31-73) Lymphocytes (%) (Auto) 10 % (24-48) Monocytes (%) (Auto) 10 % (0-9) Eosinophils (%) (Auto) 1 % (0-3) Basophils (%) (Auto) 1 % (0-3) Neutrophils # (Auto) 11.7 x10^3/uL (1.8-7.7) Lymphocytes # (Auto) 1.5 x10^3/uL (1.0-4.8) Monocytes # (Auto) 1.5 x10^3/uL (0.0-1.1) Eosinophils # (Auto) 0.1 x10^3/uL (0.0-0.7) Basophils # (Auto) 0.1 x10^3/uL (0.0-0.2) Sodium Level 145 mmol/L (136-145) Potassium Level 3.5 mmol/L (3.5-5.1) Chloride Level 107 mmol/L (98-107) Carbon Dioxide Level 29 mmol/L (21-32) Anion Gap 9 (6-14) Blood Urea Nitrogen 24 mg/dL (8-26) Creatinine 1.2 mg/dL (0.7-1.3) Estimated GFR (Cockcroft-Gault) 57.8 BUN/Creatinine Ratio 20 (6-20) Glucose Level 102 mg/dL (70-99) Calcium Level 8.9 mg/dL (8.5-10.1) Total Bilirubin 0.8 mg/dL (0.2-1.0) Aspartate Amino Transf (AST/SGOT) 23 U/L (15-37) Alanine Aminotransferase (ALT/SGPT) 29 U/L (16-63) Alkaline Phosphatase 74 U/L (46-116) Total Protein 7.0 g/dL (6.4-8.2) Albumin 2.6 g/dL (3.4-5.0) Albumin/Globulin Ratio 0.6 (1.0-1.7) Medications Active Scripts Medications Dose Route/Sig Max Daily Dose Days Date Category Lactulose 20 Gm/30 Ml Solution 20 Gm PO BID PRN 06/14/18 Rx Doxycycline Hyclate 100 Mg Tablet 1 Tab PO BID 06/14/18 Rx Guaifenesin-Codeine Syrup (Guaifenesin/Codeine Phosphate) 5 Ml Liquid 5-10 Ml PO PRN Q4HRS PRN 06/28/15 Rx Albuterol Sulfate Neb Soln (Albuterol Sulfate) 2.5 Mg/3 Ml Vial.neb 1 Vial NEB PRN Q4HRS PRN 06/27/15 Reported Tylenol (Acetaminophen) 325 Mg Tablet 650 Mg PO PRN Q6HRS PRN 06/03/15 Rx Cardizem Cd (Diltiazem Hcl) 240 Mg Cap.er.24h 240 Mg PO DAILY 06/07/14 Reported Xanax (Alprazolam) 0.25 Mg Tablet 0.25 Mg PO TID PRN PRN 12/12/13 Reported Lisinopril 40 Mg Tablet 40 Mg PO DAILY 12/12/13 Reported Impression . 1. Acute on chronic respiratory failure secondary to underlying chronic obstructive pulmonary disease, interstitial lung disease and new pneumonia. 2. Right-sided airspace disease compatible with pneumonia, suspect gram-negative, possibly gram-positive. 3. 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 4. Multiple comorbidities including hyperlipidemia, coronary artery disease with previous stenting, diverticulosis, chronic anemia. 5. Acute exacerbation of chronic obstructive pulmonary disease. CT chest 07/05/19 Impression: 1. Right lower lobe consolidation with air bronchograms and adjacent groundglass opacities, concerning for pneumonia. Recommend follow-up to ensure resolution. 2. Severe pulmonary emphysema. 3. Multifocal pleural calcifications, may relate to prior asbestos exposure. Electronically signed by: David Narayan DO (07/05/2019 3:59 PM) [facility] Plan . 1. cont. supplemental oxygen at home 2. D/C home when ok with other consults and IM 3. D/C home with inhaled medications and Augmentin 4. Plan to repeat CT chest in 2 months 5. Has follow up in office next Wednesday 6. reviewed instructions to cont. Home health and when to return if complications arise FOREIGN PEREZ MD Jul 08, 2019 11:19
--- NOTE | 2019-07-08 11:55 | NUR ---
Pt discharged to home. All discharge orders, medications and education reviewed with pt. Pt daughter left with scripts to fill. Pt left with all belongings, no further needs. IVs x2 d/c'd.
--- NOTE | 2019-07-08 12:21 | PDOC ---
[facility] PROGRESS NOTE Chief Complaint Chief Complaint CAP with sepsis Hypoxic respiratory failure - improved COPD exacerbation Ex smoker HTN, CAD/CHF, OA History of Present Illness History of Present Illness 07/07/19 Pt seen and examined. Pt states he is ready to go home. Discussed with daughter and . Discussed with nurse. Patient is an 83-year-old male who presents to the emergency department for evaluation, from his PCPs office. The patient states that he has a history of COPD, and is currently on 6 L of oxygen chronically at home. He states he has been having increasing shortness of breath over the past few weeks, along with cough productive of grayish sputum. He denies any pain, nausea, or vomiting. He went to his PCPs office today and was found to have maximal oxygen saturation in the 80s so was sent to the emergency department for further evaluation and treatment. He denies any orthopnea, pleuritic pain, dizziness or lightheadedn ess. He is noted to be febrile upon arrival to the emergency department. There are no alleviating or exacerbating factors to his symptoms otherwise. 07/06/19 Pt seen and examined. Pt standing in room. Says he is ready to go. Breathing improved. Discussed with . Discussed with nurse. 07/05/19 Pt seen and examined. When asked how he is feeling, he says he has "seen better days." Reports shortness of breath. Alert and oriented and conversant, sitting up in bed. Discussed with nurse. 07/07: Patient seen and examined on medical floor. Patient complains of being short of breath overnight, and throughout today. DW respiratory therapist who had just treated him, who states that the patient is doing better now. Patient's cough remains productive. Vitals/I&O Vitals/I&O: Vital Signs Date Time Temp Pulse Resp B/P (MAP) Pulse Ox O2 Delivery O2 Flow Rate FiO2 07/08/19 09:08 94 Nasal Cannula 5.0 07/08/19 08:47 107 175/77 07/08/19 07:00 99.2 26 99.2 I & O 07/07/19 07/07/19 07/08/19 14:59 22:59 06:59 Intake Total 440 ml 50 ml Output Total 100 ml Balance 440 ml -50 ml Physical Exam General: Alert, Oriented X3, Cooperative, No acute distress Heart: Regular rate, Normal S1, Normal S2 Lungs: Crackles Abdomen: Normal bowel sounds, Soft, No tenderness, No masses Extremities: No clubbing, No cyanosis, No edema, No tenderness/swelling Skin: No rashes, No breakdown, No significant lesion Labs Labs: Laboratory Tests Test 07/08/19 04:15 White Blood Count 14.9 x10^3/uL (4.0-11.0) Red Blood Count 2.85 x10^6/uL (4.30-5.70) Hemoglobin 9.1 g/dL (13.0-17.5) Hematocrit 27.4 % (39.0-53.0) Mean Corpuscular Volume 96 fL (79-100) Mean Corpuscular Hemoglobin 32 pg (25-35) Mean Corpuscular Hemoglobin Concent 33 g/dL (31-37) Red Cell Distribution Width 20.9 % (11.5-14.5) Platelet Count 291 x10^3/uL (140-400) Neutrophils (%) (Auto) 79 % (31-73) Lymphocytes (%) (Auto) 10 % (24-48) Monocytes (%) (Auto) 10 % (0-9) Eosinophils (%) (Auto) 1 % (0-3) Basophils (%) (Auto) 1 % (0-3) Neutrophils # (Auto) 11.7 x10^3/uL (1.8-7.7) Lymphocytes # (Auto) 1.5 x10^3/uL (1.0-4.8) Monocytes # (Auto) 1.5 x10^3/uL (0.0-1.1) Eosinophils # (Auto) 0.1 x10^3/uL (0.0-0.7) Basophils # (Auto) 0.1 x10^3/uL (0.0-0.2) Sodium Level 145 mmol/L (136-145) Potassium Level 3.5 mmol/L (3.5-5.1) Chloride Level 107 mmol/L (98-107) Carbon Dioxide Level 29 mmol/L (21-32) Anion Gap 9 (6-14) Blood Urea Nitrogen 24 mg/dL (8-26) Creatinine 1.2 mg/dL (0.7-1.3) Estimated GFR (Cockcroft-Gault) 57.8 BUN/Creatinine Ratio 20 (6-20) Glucose Level 102 mg/dL (70-99) Calcium Level 8.9 mg/dL (8.5-10.1) Total Bilirubin 0.8 mg/dL (0.2-1.0) Aspartate Amino Transf (AST/SGOT) 23 U/L (15-37) Alanine Aminotransferase (ALT/SGPT) 29 U/L (16-63) Alkaline Phosphatase 74 U/L (46-116) Total Protein 7.0 g/dL (6.4-8.2) Albumin 2.6 g/dL (3.4-5.0) Albumin/Globulin Ratio 0.6 (1.0-1.7) Review of Systems Review of Systems: No chest pain No N/V Assessment and Plan Assessmemt and Plan Problems Medical Problems: (1) COPD with acute exacerbation Status: Acute (2) Pneumonia Status: Acute (3) Rapid atrial fibrillation Status: Acute Assessment: CAP with sepsis Hypoxic respiratory failure - improved COPD exacerbation Ex smoker HTN, CAD/CHF, OA PLAN: Hope to discharge when OK with pulmonology cardiac monitoring on O2 per nasal cannula IV abx; will switch to PO Combivent Medrol dose pack Tessalon perles guaifenesin home meds CBC, CMP PTOT DVT ppx Full code Comment Review of Relevant I have reviewed the following items [place] (where applicable) has been applied. HARDEEP ALMONTE III DO Jul 08, 2019 12:21
--- NOTE | 2019-07-09 19:40 | DS ---
DATE OF DISCHARGE: 07/08/2019 ADMISSION DIAGNOSES: Pneumonia and chronic obstructive pulmonary disease. DISCHARGE DIAGNOSES: Resolving respiratory failure secondary to pneumonia and chronic obstructive pulmonary disease. HOSPITAL COURSE: The patient is a pleasant 83-year-old male who presented with pneumonia, COPD. He was admitted. We gave him steroids, breathing treatments, oxygen, antibiotics and consulted Pulmonary. We did physical therapy and occupational therapy. We continued his home meds and he did better. We discharged to home with close outpatient followup. DISPOSITION: Home. ACTIVITY: As tolerated. DIET: Low sodium. MEDICATIONS: Please see the MRAD. TOTAL TIME: 31 minutes. AVAL Jamila ALMONTE DO DR: MUNDO/francisco JOB#: [id number] / [id number]
== END 2019-07-08 12:02 | disposition home or self-care (01) | DRG 871 ==
LOC: ER 16:10 → 5 SOUTH 17:12 → 2 NORTH 18:34
PROVIDERS: ADMIT Internal Medicine; ATTEND Internal Medicine
DX: A41.9 Sepsis, unspecified organism (principal); J18.9 Pneumonia, unspecified organism; J96.21 Acute and chronic respiratory failure with hypoxia; I48.20 Chronic atrial fibrillation, unspecified; J43.9 Emphysema, unspecified; E78.5 Hyperlipidemia, unspecified; I25.10 Atherosclerotic heart disease of native coronary artery without angina pectoris; M19.90 Unspecified osteoarthritis, unspecified site; K57.90 Diverticulosis of intestine, part unspecified, without perforation or abscess without bleeding; I11.0 Hypertensive heart disease with heart failure; I50.9 Heart failure, unspecified; Z77.090 Contact with and (suspected) exposure to asbestos; Z99.81 Dependence on supplemental oxygen; Z95.5 Presence of coronary angioplasty implant and graft; Z87.01 Personal history of pneumonia (recurrent); Z87.891 Personal history of nicotine dependence; Z82.49 Family history of ischemic heart disease and other diseases of the circulatory system; Z83.3 Family history of diabetes mellitus
CPT/HCPCS: 36415; 71046; 71250; 80053; 83605; 83880; 84484; 85007; 85025; 87040; 87804; 93005; 94640; 94760; 96361; 96365; 96375; 96376; J0456; J1956; J2930; J3490; J7030; J7620; 97535; 99291-25; G0378